=== PATIENT | male | born 1960 | race Hispanic/Latino ===

== ENCOUNTER 2016-10-23 21:27 | Inpatient (IN) | payer MEDICAID ==
--- NOTE | 2016-10-24 02:50 | Emergency Department Report ---
ED Extremity Problem HPI - General Chief complaint: Extremity Problem,Nontraumatic Stated complaint: LEFT LEG PAIN Time Seen by Provider: 10/24/16 02:46 Source: patient Mode of arrival: Wheelchair Limitations: No Limitations - History of Present Illness Initial comments: 55-year-old male past medical history brain surgery, osteomyelitis, alcoholism, cirrhosis presents with complaint of acute on chronic left lower extremity pain. Patient states that he once at [place] emergency room where he was diagnosed with acute osteomyelitis. States that he had infected hardware removed from his ankle in June 2016. states that he is experiencing pain in left lower extremity. States that he was supposed to be admitted to [facility] for IV antibiotics and left AGAINST MEDICAL ADVICE. This was within the last week. Patient awake alert and oriented 3 complaining of chills. MD Complaint: extremity pain, extremity swelling Onset/Timin -: week(s) Location: left, lower extremity History of Same: Yes -: Yes arthralgia, Yes fever Radiation: distal Severity scale (0 -10): 7 Quality: aching Improves with: nothing Worsens with: nothing - Related Data Allergies Allergy/AdvReac Type Severity Reaction Status Date / Time No Known Allergies Allergy Verified 10/23/16 21:52 ED Review of Systems ROS: Stated complaint: LEFT LEG PAIN Other details as noted in HPI Constitutional: denies: chills, fever Eyes: denies: eye pain, eye discharge, vision change ENT: denies: ear pain, throat pain Respiratory: denies: cough, shortness of breath, wheezing Cardiovascular: denies: chest pain, palpitations Endocrine: no symptoms reported Gastrointestinal: denies: abdominal pain, nausea, diarrhea Genitourinary: denies: urgency, dysuria Musculoskeletal: as per HPI. denies: back pain, joint swelling, arthralgia Skin: denies: rash, lesions Neurological: denies: headache, weakness, paresthesias Psychiatric: denies: anxiety, depression Hematological/Lymphatic: denies: easy bleeding, easy bruising ED Past Medical Hx - Past Medical History Previous Medical History?: Yes Additional medical history: CRONIC BACK AND LEG PAIN - Surgical History Past Surgical History?: Yes Additional Surgical History: LEFT LEG - Social History Smoking Status: Former Smoker Substance Use Type: Alcohol ED Physical Exam - General Limitations: No Limitations General appearance: alert, in no apparent distress - Head Head exam: Present: atraumatic, other (chronic scarring on scalp secondary to brain surgery) - Eye Eye exam: Present: normal appearance, PERRL, EOMI - ENT ENT exam: Present: mucous membranes moist - Neck Neck exam: Present: normal inspection - Respiratory Respiratory exam: Present: normal lung sounds bilaterally. Absent: respiratory distress - Cardiovascular Cardiovascular Exam: Present: regular rate, normal rhythm. Absent: systolic murmur, diastolic murmur, rubs, gallop - GI/Abdominal GI/Abdominal exam: Present: soft, normal bowel sounds - Rectal Rectal exam: Present: deferred - Extremities Exam Extremities exam: Present: normal inspection - Expanded Lower Extremity Exam Left Upper Leg exam: Present: normal inspection, full ROM Knee exam: Present: normal inspection, full ROM Ankle exam: Present: tenderness, deformity (visible healing chronic wound left distal lateral ankle) Foot/Toe exam: Present: normal inspection, full ROM Neuro vascular tendon exam: Present: no vascular compromise (distal dorsalis pedis and posterior tibial pulses intact) Gait: Positive: antalgic 1 - Healing chronic wound here no visible drainage no visible cellulitis no palpable fluctuance - Back Exam Back exam: Present: normal inspection - Neurological Exam Neurological exam: Present: alert, oriented X3, CN II-XII intact, abnormal gait (antalgic gait) - Psychiatric Psychiatric exam: Present: anxious - Skin Skin exam: Present: warm, dry, intact, normal color. Absent: rash ED Course Vital Signs 10/23/16 10/24/16 21:53 01:30 Temperature 98.2 F 97.8 F Pulse Rate 102 H 83 Respiratory 18 18 Rate Blood Pressure 160/93 Blood Pressure 170/85 [Left] O2 Sat by Pulse 95 98 Oximetry ED Medical Decision Making - Lab Data Result diagrams: 10/24/16 03:00 10/24/16 03:15 - Medical Decision Making A/P: Concern for acute osteomyelitis and left leg abscesses, possible elevated creatinine from baseline, possible GETACHEW 1-I discussed case with Dr. Zaragoza 2-x-ray shows bony deformities consistent with osteomyelitis. Will treat empirically with IV vancomycin and Zosyn, blood cultures sent. IV fluid resuscitation 3-medical records requested from [facility] 4-case discussed with hospitalist Dr. campoverde for admission 5- distal pulses and extremity intact distal sensation intact on clinical exam Critical care attestation.: If time is entered above; I have spent that time in minutes in the direct care of this critically ill patient, excluding procedure time. ED Disposition Clinical Impression: Osteomyelitis of ankle Qualifiers: Osteomyelitis type: other chronic Laterality: left Qualified Code(s): M86.672 - Other chronic osteomyelitis, left ankle and foot Disposition: OP ADMIT IP TO THIS HOSP Is pt being admited?: Yes Does the pt Need Aspirin: No Condition: Stable Referrals: PRIMARY CARE, [Primary Care Provider] - 3-5 Days
[2016-10-24] MEDS ORDERED: MORPHINE IV ONE (03:30)
[2016-10-24] MEDS ORDERED: NACL 0.9% 1000 ML 1,000 ML IV ONE (03:30)
[2016-10-24] MEDS ORDERED: ZOSYN/NS 4.5GM/100ML 4.5 GM/100 ML VIAL IV ONE ×2 (03:31→08:37)
[2016-10-24 03:41] LABS: Basophils % (Auto) 0.4 % (0.0-1.8); Eosinophils % (Auto) 3.3 % (0.0-4.3); Hemoglobin 12.8 gm/dl (11.8-15.2); Mean Corpuscular HGB Conc 34 % (32-34); Mean Corpuscular Hemoglobin 31 pg (28-32); Mean Corpuscular Volume 91 fl (84-94); Platelet Count 103 K/mm3 (140-440); Red Blood Count 4.16 M/mm3 (3.65-5.03); White Blood Count 4.7 K/mm3 (4.5-11.0)
[2016-10-24] MEDS ORDERED: ZOFRAN IV ONE (03:47)
[2016-10-24 03:51] LABS: Albumin/Globulin Ratio 0.9 %; Bilirubin,Direct 0.3 mg/dL (0-0.2); Bilirubin,Indirect 0.6 mg/dL; Bilirubin,Total 0.9 mg/dL (0.1-1.2); Total Protein 6.5 g/dL (6.3-8.2)
--- NOTE | 2016-10-24 03:56 | XRay Report ---
FINAL REPORT EXAM: XR ANKLE 3+V LT HISTORY: pain LLE, hx of ORIF COMPARISON: None available. FINDINGS: Three views of left ankle obtained. 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 Fracture line appears well corticated. No definite acute fracture in this region. Moderate narrowing of the tibiotalar joint space with hypertrophic spurring. There is bony irregularity along the articular surface and lateral aspect of the distal tibia and osteopenia along the superior margin the talus in that region. Findings are concerning for posttraumatic osteolysis. Septic arthritis cannot be excluded. Prominent soft tissue swelling. Prominent plantar calcaneal spur. IMPRESSION: Bony irregularity lucency along the lateral margin of the distal tibia and talus. This could reflect osteomyelitis from prior trauma. Septic arthritis cavus similar appearance. Prominent soft tissue swelling. 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 Prominent plantar calcaneal spur.
[2016-10-24] MEDS ORDERED: VANCOMYCIN PHARMACY TO DOSE IV SCH ×2 (04:00→09:00)
[2016-10-24 04:08] LABS: BUN/Creatinine Ratio 7.64; Calcium 9.1 mg/dL (8.4-10.2); Chloride 102.7 mmol/L (98-107); Potassium 4.7 mmol/L (3.6-5.0)
[2016-10-24 04:12] LABS: Erythrocyte Sedimentation Rate 16 mm/Hr (0-20)
[2016-10-24] MEDS ORDERED: VANCOMYCIN 1,500 MG in NACL 0.9% 500 ML 500 ML IV ONE (04:15)
[2016-10-24 04:21] LABS: C-Reactive Protein 0.8 mg/dL (0.00-1.30)
[2016-10-24 05:38] LABS: Urine Drugs of Abuse Note Disclamer
[2016-10-24 05:44] LABS: Bilirubin,Urine NEG (Negative); Blood,Urine NEG (Negative); Ketones,Urine NEG (Negative); Leukocyte Esterase,Urine NEG (Negative); Mucus,Urine FEW /HPF; Nitrite,Urine NEG (Negative); Protein,Urine <15 mg/dL mg/dL (Negative); Urobilinogen,Urine < 2.0 mg/dL (<2.0)
--- NOTE | 2016-10-24 08:33 | Admit Criteria Form ---
Admission Criteria Documentation: OSTEOMYELITIS Clinical Indications for Admission to Inpatient Care (Place 'X' for any and all applicable criteria) Admission is indicated by 1 or more of the following (1)(2)(3)(4)(5)(6): [ ] I. Significant systemic illness indicated by 2 or more of the following: [ ]a) Core (eg rectal) temperature greater or equal [id number](37.8C) in an adult [ ]b) Oral temperature[A] greater than or equal to 99.3 degrees F ( 37.4 degrees C) in an adult [ ]c) Heart rate greater than 90 beats per minute [ ]d) Respiratory rate greater than 20 breaths per minute or PaCO2 less than 32 mm Hg (4.3 kPa) [ ]e) White blood cell count > 12,000/mm3 (12 x109/L) or < 4000/mm3 ( 4 x109/L) or > 10% band cells [ ] II. Hemodynamic instability [X] III. Severe pain requiring acute inpatient management [ ] IV. Bacteremia [ ] V. Altered Mental status that is severe or persistent [ ] . Limb-threatening infection [ ] VII. Suspected necrotizing soft tissue infection (e.g., gas in tissue) [ ] VIII.Surgical intervention required (e.g., bone or soft tissue debridement, removal of foreign body, or revascularization procedure) not performable in outpatient or emergency department level of care(7) [] IX. Appropriate monitoring and therapy (IV antibiotics) cannot be immediately arranged for home or outpatient setting [ ] X. Failure of outpatient treatment [ ] XI. High-risk comorbid condition present including 1 or more of the following: [ ]a) Poorly controlled diabetes (e.g., HbA1c greater than 10% (0.1)) [ ]b) Vascular insufficiency to affected area [ ]c) Cirrhosis [ ]d) Neutropenia [ ]e) Asplenia [ ]f) Immunosuppression (e.g., chronic systemic corticosteroid use) [ ]g) Symptomatic heart failure [ ] XII. Joint involvement (e.g., septic arthritis) suspected [ ] XIII.Vertebral osteomyelitis [ ] XIV. Skull-base osteomyelitis (e.g.,"malignant external otitis")[A](8)(9)(10 ) Extended stay beyond goal length of stay may be needed for(1)(3)(4)(5)(24)(25): [ ]a) Inadequate clinical response to antibiotics (e.g., continued fever, hypotension) [ ]b) Bacteremia [ ]c) Surgical intervention needed (e.g., beyond superficial debridement)(26) [ ]d) Vertebral osteomyelitis with spinal cord compression, abscess formation, or mechanical instability [ ]e) Antibiotic-resistant organism identified (e.g., methicillin-resistant Staphylococcal aureus) [ ]f) Severe concomitant cellulitis [ ]g) Acute metabolic disorder [ ]h) Unstable comorbidities (e.g., heart failure, renal insufficiency, immunosuppressed state)(28) [ ]i) Clinically significant malnutrition [ ]j) Acute renal failure The original [facility] [employer] content created by [facility] has been revised. The portions of the content which have been revised are identified through the use of italic text or in bold, and [facility] has neither reviewed nor approved the modified material. All other unmodified content is copyright [facility] [facility].Edition 2016. Admission Criteria Met: Yes
[2016-10-24] MEDS ORDERED: ZOFRAN IM PRN (08:41)
--- NOTE | 2016-10-24 08:41 | History and Physical Report ---
<LUCIANO MADISON - Last Filed: 10/24/16 20:08> History of Present Illness Date of admission: 10/24/16 04:25 Medications and Allergies Allergies Allergy/AdvReac Type Severity Reaction Status Date / Time No Known Allergies Allergy Verified 10/23/16 21:52 Home Medications Medication Instructions Recorded Confirmed Last Taken Type Levothyroxine [Synthroid] 88 mcg PO DAILY #30 tablet 07/17/16 10/24/16 Unknown Rx Multivitamin Tab [Multiple Vitamin 1 each PO DAILY #30 tablet 07/17/16 10/24/16 Unknown Rx TAB (Theragran)] Omeprazole 20 mg PO QDAY #30 07/17/16 10/24/16 Unknown Rx Rifaximin [Xifaxan] 550 mg PO BID #60 tablet 07/17/16 10/24/16 Unknown Rx Spironolactone 50 mg PO QDAY #30 07/17/16 10/24/16 Unknown Rx Lactulose 15 - 30 ml PO TID PRN 30 Days 08/04/16 10/24/16 Unknown Rx Thiamine [Vitamin B-1] 100 mg PO QDAY #30 tablet 08/04/16 10/24/16 Unknown Rx chlordiazePOXIDE [Librium] 10 mg PO DAILY #5 capsule 08/04/16 10/24/16 Unknown Rx oxyCODONE [Roxicodone TAB] 5 mg PO Q6HR #10 tablet 08/04/16 10/24/16 Unknown Rx Levothyroxine [Synthroid] 88 mcg PO DAILY@0600 #30 tablet 08/09/16 10/24/16 Unknown Rx Multivitamin Tab [Multiple Vitamin 1 each PO QDAY #30 tablet 08/09/16 10/24/16 Unknown Rx TAB (Theragran)] Pantoprazole [Protonix TAB] 40 mg PO BID #30 tablet 08/09/16 10/24/16 Unknown Rx Rifaximin [Xifaxan] 550 mg PO BID #30 tablet 08/09/16 10/24/16 Unknown Rx Spironolactone [Aldactone] 50 mg PO QDAY #30 tablet 08/09/16 10/24/16 Unknown Rx chlordiazePOXIDE [Librium] 10 mg PO DAILY #10 capsule 08/09/16 10/24/16 Unknown Rx traMADol [Ultram] 50 mg PO Q6HR PRN #20 tablet 08/09/16 10/24/16 Unknown Rx Citalopram Hydrobromide 20 mg PO DAILY MDD 20 mg 10/24/16 10/24/16 10/23/16 History [Citalopram HBr] 20 mg Lactulose [Lactulose] 15 ml PO BID MDD 15 ml 10/24/16 10/24/16 10/22/16 History 15 ml Levothyroxine [Synthroid] 88 mcg PO QAM 10/24/16 10/24/16 10/24/16 History 88 mcg Multivitamin Tab [Multiple Vitamin 1 tab PO DAILY MDD 1 tablet 10/24/1610/23/16 History TAB (Theragran)] 1 tab Oxycodone HCl/Acetaminophen 1 tab PO Q6H PRN MDD 1 tab 10/24/16 10/24/16 History [Percocet 10/325 mg] 1 tab Quetiapine Fumarate [SEROquel XR] 25 mg PO HS MDD 25 mg 10/24/16 10/24/16 History 25 mg Rifaximin [Xifaxan] 550 mg PO BID 10/24/16 10/24/16 10/17/16 History 550 mg Spironolactone [Aldactone] 50 mg PO QDAY MDD 50 mg 10/24/16 10/24/16 10/23/16 History 50 mg Sulfamethoxazole/Trimethoprim 1 each PO BID 10/24/16 10/24/16 10/23/16 History [Bactrim DS TAB] 1 tab Active Meds: Active Medications Citalopram Hydrobromide (Celexa) 20 mg PO DAILY [facility] Last Admin: 10/24/16 09:47 Dose: 20 mg Enoxaparin Sodium (Lovenox) 40 mg SUB-Q QDAY@2200 [facility] Vancomycin HCl 1,250 mg/ (Sodium Chloride) 275 mls @ 166.667 mls/hr IV Q24H [facility] Sodium Chloride (Nacl 0.9% 1000 Ml) 1,000 mls @ 75 mls/hr IV DIRECT [facility] Last Admin: 10/24/16 12:40 Dose: 75 mls/hr Piperacillin Sod/Tazobactam Sod (Zosyn/Ns 4.5gm/100ml) 4.5 gm in 100 mls @ 200 mls/hr IV Q8HR [facility] PRN Reason: Protocol Lactulose (Cephulac) 20 gm PO BID [facility] Levothyroxine Sodium (Synthroid) 88 mcg PO QAM [facility] Last Admin: 10/24/16 09:47 Dose: 88 mcg Morphine Sulfate (Morphine) 2 mg IV Q4H PRN PRN Reason: Pain, Moderate (4-6) Last Admin: 10/24/16 18:17 Dose: 2 mg Multivitamins (Theragran Tab) 1 each PO DAILY [facility] Last Admin: 10/24/16 09:47 Dose: 1 each Ondansetron HCl (Zofran) 4 mg IM Q4H PRN PRN Reason: Nausea And Vomiting Last Admin: 10/24/16 17:00 Dose: 4 mg Pantoprazole Sodium (Protonix) 40 mg PO BID [facility] Quetiapine Fumarate (Seroquel) 25 mg PO QHS [facility] Rifaximin (Xifaxan) 550 mg PO BID [facility] Last Admin: 10/24/16 09:47 Dose: 550 mg Spironolactone (Aldactone) 50 mg PO QDAY [facility] Last Admin: 10/24/16 09:48 Dose: 50 mg Thiamine HCl (Vitamin B-1) 100 mg PO QDAY [facility] Tramadol HCl (Ultram) 50 mg PO Q6HR PRN PRN Reason: Pain Vancomycin HCl (Vancomycin Pharmacy To Dose) 1 each IV PKCONSULT [facility] PRN Reason: Protocol Exam - Constitutional Vitals: Temp Pulse Resp BP Pulse Ox 97.9 F 73 18 127/70 98 10/24/16 16:00 10/24/16 16:00 10/24/16 16:00 10/24/16 16:00 10/24/16 16:00 Results - Labs CBC & Chem 7: 10/24/16 03:00 10/24/16 03:15 Labs: Laboratory Last Values WBC 4.7 K/mm3 (4.5-11.0) 10/24/16 03:00 RBC 4.16 M/mm3 (3.65-5.03) 10/24/16 03:00 Hgb 12.8 gm/dl (11.8-15.2) 10/24/16 03:00 Hct 38.0 % (35.5-45.6) 10/24/16 03:00 MCV 91 fl (84-94) 10/24/16 03:00 MCH 31 pg (28-32) 10/24/16 03:00 MCHC 34 % (32-34) 10/24/16 03:00 RDW 17.0 % (13.2-15.2) H 10/24/16 03:00 Plt Count 103 K/mm3 (140-440) L 10/24/16 03:00 Lymph % (Auto) 28.7 % (13.4-35.0) 10/24/16 03:00 [place] % (Auto) 12.8 % (0.0-7.3) H 10/24/16 03:00 Eos % (Auto) 3.3 % (0.0-4.3) 10/24/16 03:00 Baso % (Auto) 0.4 % (0.0-1.8) 10/24/16 03:00 Lymph # 1.4 K/mm3 (1.2-5.4) 10/24/16 03:00 [place] # 0.6 K/mm3 (0.0-0.8) 10/24/16 03:00 Eos # 0.2 K/mm3 (0.0-0.4) 10/24/16 03:00 Baso # 0.0 K/mm3 (0.0-0.1) 10/24/16 03:00 Seg Neutrophils % 54.8 % (40.0-70.0) 10/24/16 03:00 Seg Neutrophils # 2.6 K/mm3 (1.8-7.7) 10/24/16 03:00 ESR 16 mm/Hr (0-20) 10/24/16 03:00 VBG pH 7.345 (7.320-7.420) 10/24/16 03:00 Sodium 136 mmol/L (137-145) L 10/24/16 03:15 Potassium 4.7 mmol/L (3.6-5.0) 10/24/16 03:15 Chloride 102.7 mmol/L (98-107) 10/24/16 03:15 Carbon Dioxide 16 mmol/L (22-30) L 10/24/16 03:15 Anion Gap 22 mmol/L 10/24/16 03:15 BUN 13 mg/dL (9-20) 10/24/16 03:15 Creatinine 1.7 mg/dL (0.8-1.5) H 10/24/16 03:15 Estimated GFR 42 ml/min 10/24/16 03:15 BUN/Creatinine Ratio 7.64 % 10/24/16 03:15 Glucose 74 mg/dL (75-100) L 10/24/16 03:15 Lactic Acid 1.90 mmol/L (0.7-2.0) 10/24/16 03:15 Calcium 9.1 mg/dL (8.4-10.2) 10/24/16 03:15 Total Bilirubin 0.90 mg/dL (0.1-1.2) 10/24/16 03:15 Direct Bilirubin 0.3 mg/dL (0-0.2) H 10/24/16 03:15 Indirect Bilirubin 0.6 mg/dL 10/24/16 03:15 AST 39 units/L (5-40) 10/24/16 03:15 ALT 13 units/L (7-56) 10/24/16 03:15 Alkaline Phosphatase 82 units/L (35-129) 10/24/16 03:15 Total Creatine Kinase 239 units/L (55-170) H 10/24/16 03:15 C-Reactive Protein 0.80 mg/dL (0.00-1.30) 10/24/16 03:15 Total Protein 6.5 g/dL (6.3-8.2) 10/24/16 03:15 Albumin 3.0 g/dL (3.9-5) L 10/24/16 03:15 Albumin/Globulin Ratio 0.9 % 10/24/16 03:15 Urine Color Yellow (Yellow) 10/24/16 Unknown Urine Turbidity Clear (Clear) 10/24/16 Unknown Urine pH 5.0 (5.0-7.0) 10/24/16 Unknown Ur Specific [place] 1.016 (1.003-1.030) 10/24/16 Unknown Urine Protein <15 mg/dl mg/dL (Negative) 10/24/16 Unknown Urine Glucose (UA) Neg mg/dL (Negative) 10/24/16 Unknown Urine Ketones Neg mg/dL (Negative) 10/24/16 Unknown Urine Blood Neg (Negative) 10/24/16 Unknown Urine Nitrite Neg (Negative) 10/24/16 Unknown Urine Bilirubin Neg (Negative) 10/24/16 Unknown Urine Urobilinogen < 2.0 mg/dL (<2.0) 10/24/16 Unknown Ur Leukocyte Esterase Neg (Negative) 10/24/16 Unknown Urine WBC (Auto) 6.0 /HPF (0.0-6.0) 10/24/16 Unknown Urine RBC (Auto) 4.0 /HPF (0.0-6.0) 10/24/16 Unknown U Epithel Cells (Auto) 1.0 /HPF (0-13.0) 10/24/16 Unknown Hyaline Casts 1 /LPF 10/24/16 Unknown Urine Mucus Few /HPF 10/24/16 Unknown Urine Opiates Screen Presumptive negative 10/24/16 Unknown Urine Methadone Screen Presumptive negative 10/24/16 Unknown Ur Barbiturates Screen Presumptive negative 10/24/16 Unknown Ur Phencyclidine Scrn Presumptive negative 10/24/16 Unknown Ur Amphetamines Screen Presumptive positive 10/24/16 Unknown U Benzodiazepines Scrn Presumptive negative 10/24/16 Unknown Urine Cocaine Screen Presumptive positive 10/24/16 Unknown U Marijuana (THC) Screen Presumptive negative 10/24/16 Unknown Drugs of Abuse Note Disclamer 10/24/16 Unknown Assessment and Plan Assessment and plan: I saw and evaluated the patient. I agree with the findings and the plan of care as documented in the Nurse Practitioner's~note, with the following corrections and additions. Patient seen and evaluated, medical records reviewed, formulated the treatment plan along with the nurse practitioner Consulted orthopedic surgeon We'll also consult infectious diseases Agree with the above documentation and treatment plan <JADEN VORA - Last Filed: 10/25/16 13:39> History of Present Illness Date of examination: 10/24/16 Date of admission: 10/24/16 04:25 Chief complaint: Left leg pain and swelling History of present illness: Patient is a 55-year-old male past medical history of brain surgery, osteomyelitis, alcoholism, cirrhosis presents with complaint of acute on chronic left lower extremity pain and extremity swelling.The pain began Friday around 4:00 am while the patient was at home. The pain was described as aching and had a gradual onset. The patient had difficulty of sleeping Friday because of the pain. The pain continued to gradually increase in severity to an 9/10 today. The pain was exacerbated with walking or standing and was not significantly relieved with Percocet that the patient had by prescription. Patient states that he once at [place] emergency room where he was diagnosed with acute osteomyelitis. Also States that he had infected hardware removed from his ankle in June 2016. Past History Past Medical History: hepatitis (C), hypothyroidism Past Surgical History: Other (Brain ) Social history: lives with family, smoking, alcohol abuse, other Family history: CAD Medications and Allergies Active Meds: Active Medications Vancomycin HCl 1,250 mg/ (Sodium Chloride) 275 mls @ 166.667 mls/hr IV Q24H [facility] Piperacillin Sod/Tazobactam Sod (Zosyn/Ns 4.5gm/100ml) 4.5 gm in 100 mls @ 200 mls/hr IV Q6HR ONE Stop: 10/24/16 09:06 Morphine Sulfate (Morphine) 2 mg IV Q4H PRN PRN Reason: Pain, Moderate (4-6) Vancomycin HCl (Vancomycin Pharmacy To Dose) 1 each IV PKCONSULT [facility] PRN Reason: Protocol Vancomycin HCl (Vancomycin Pharmacy To Dose) 1 each IV PKCONSULT [facility] PRN Reason: Protocol Review of Systems Constitutional: chills, no weight loss, no weight gain, no sweats, no night sweats Ears, nose, mouth and throat: no ear pain, no ear discharge, no tinnitis, no decreased hearing, no nose pain Cardiovascular: no chest pain, no orthopnea, no palpitations Respiratory: no cough, no cough with sputum, no excessive sputum, no hemoptysis , no shortness of breath Gastrointestinal: no nausea, no vomiting, no diarrhea, no constipation, no change in bowel habits, no hematemesis Genitourinary Male: no hematuria, no flank pain, no discharge, no urinary frequency, no urinary hesitancy Rectal: no incontinence, no bleeding Musculoskeletal: other (Left leg), no neck pain, no shooting arm pain Integumentary: no rash, no pruritis, no redness, no sores, no wounds Neurological: no transient paralysis, no paralysis, no weakness, no parathesias Psychiatric: no anxiety, no memory loss, no change in sleep habits, no sleep disturbances, no insomnia, no hypersomnia Endocrine: no cold intolerance, no heat intolerance, no polyphagia, no excessive thirst, no polydipsia Hematologic/Lymphatic: no easy bruising, no easy bleeding Allergic/Immunologic: no urticaria, no allergic rhinitis Exam - Constitutional Vitals: Temp Pulse Resp BP Pulse Ox 98.3 F 86 18 161/78 98 10/24/16 05:12 10/24/16 05:12 10/24/16 05:12 10/24/16 05:12 10/24/16 05:12 General appearance: Present: mild distress - EENT Eyes: Present: PERRL ENT: hearing intact - Neck Neck: Present: supple - Respiratory Respiratory effort: normal Respiratory: bilateral: CTA - Cardiovascular Heart rate: 78 Rhythm: regular Heart Sounds: Present: S1 & S2 - Extremities Extremities: no ischemia Extremity abnormal: other (left ankle wound ) Peripheral Pulses: within normal limits - Abdominal General gastrointestinal: Present: soft, non-tender Male genitourinary: Present: deferred - Rectal Rectal Exam: deferred - Integumentary Integumentary: Present: clear, warm, dry - Musculoskeletal Musculoskeletal: strength equal bilaterally, other (left leg wound) - Psychiatric Psychiatric: appropriate mood/affect - Neurologic Neurologic: CNII-XII intact - Allied Health Allied health notes reviewed: nursing Results - Labs CBC & Chem 7: 10/25/16 06:01 10/25/16 06:01 Labs: Laboratory Last Values WBC 4.7 K/mm3 (4.5-11.0) 10/24/16 03:00 RBC 4.16 M/mm3 (3.65-5.03) 10/24/16 03:00 Hgb 12.8 gm/dl (11.8-15.2) 10/24/16 03:00 Hct 38.0 % (35.5-45.6) 10/24/16 03:00 MCV 91 fl (84-94) 10/24/16 03:00 MCH 31 pg (28-32) 10/24/16 03:00 MCHC 34 % (32-34) 10/24/16 03:00 RDW 17.0 % (13.2-15.2) H 10/24/16 03:00 Plt Count 103 K/mm3 (140-440) L 10/24/16 03:00 Lymph % (Auto) 28.7 % (13.4-35.0) 10/24/16 03:00 [place] % (Auto) 12.8 % (0.0-7.3) H 10/24/16 03:00 Eos % (Auto) 3.3 % (0.0-4.3) 10/24/16 03:00 Baso % (Auto) 0.4 % (0.0-1.8) 10/24/16 03:00 Lymph # 1.4 K/mm3 (1.2-5.4) 10/24/16 03:00 [place] # 0.6 K/mm3 (0.0-0.8) 10/24/16 03:00 Eos # 0.2 K/mm3 (0.0-0.4) 10/24/16 03:00 Baso # 0.0 K/mm3 (0.0-0.1) 10/24/16 03:00 Seg Neutrophils % 54.8 % (40.0-70.0) 10/24/16 03:00 Seg Neutrophils # 2.6 K/mm3 (1.8-7.7) 10/24/16 03:00 ESR 16 mm/Hr (0-20) 10/24/16 03:00 VBG pH 7.345 (7.320-7.420) 10/24/16 03:00 Sodium 136 mmol/L (137-145) L 10/24/16 03:15 Potassium 4.7 mmol/L (3.6-5.0) 10/24/16 03:15 Chloride 102.7 mmol/L (98-107) 10/24/16 03:15 Carbon Dioxide 16 mmol/L (22-30) L 10/24/16 03:15 Anion Gap 22 mmol/L 10/24/16 03:15 BUN 13 mg/dL (9-20) 10/24/16 03:15 Creatinine 1.7 mg/dL (0.8-1.5) H 10/24/16 03:15 Estimated GFR 42 ml/min 10/24/16 03:15 BUN/Creatinine Ratio 7.64 % 10/24/16 03:15 Glucose 74 mg/dL (75-100) L 10/24/16 03:15 Lactic Acid 1.90 mmol/L (0.7-2.0) 10/24/16 03:15 Calcium 9.1 mg/dL (8.4-10.2) 10/24/16 03:15 Total Bilirubin 0.90 mg/dL (0.1-1.2) 10/24/16 03:15 Direct Bilirubin 0.3 mg/dL (0-0.2) H 10/24/16 03:15 Indirect Bilirubin 0.6 mg/dL 10/24/16 03:15 AST 39 units/L (5-40) 10/24/16 03:15 ALT 13 units/L (7-56) 10/24/16 03:15 Alkaline Phosphatase 82 units/L (35-129) 10/24/16 03:15 Total Creatine Kinase 239 units/L (55-170) H 10/24/16 03:15 C-Reactive Protein 0.80 mg/dL (0.00-1.30) 10/24/16 03:15 Total Protein 6.5 g/dL (6.3-8.2) 10/24/16 03:15 Albumin 3.0 g/dL (3.9-5) L 10/24/16 03:15 Albumin/Globulin Ratio 0.9 % 10/24/16 03:15 Urine Color Yellow (Yellow) 10/24/16 Unknown Urine Turbidity Clear (Clear) 10/24/16 Unknown Urine pH 5.0 (5.0-7.0) 10/24/16 Unknown Ur Specific [place] 1.016 (1.003-1.030) 10/24/16 Unknown Urine Protein <15 mg/dl mg/dL (Negative) 10/24/16 Unknown Urine Glucose (UA) Neg mg/dL (Negative) 10/24/16 Unknown Urine Ketones Neg mg/dL (Negative) 10/24/16 Unknown Urine Blood Neg (Negative) 10/24/16 Unknown Urine Nitrite Neg (Negative) 10/24/16 Unknown Urine Bilirubin Neg (Negative) 10/24/16 Unknown Urine Urobilinogen < 2.0 mg/dL (<2.0) 10/24/16 Unknown Ur Leukocyte Esterase Neg (Negative) 10/24/16 Unknown Urine WBC (Auto) 6.0 /HPF (0.0-6.0) 10/24/16 Unknown Urine RBC (Auto) 4.0 /HPF (0.0-6.0) 10/24/16 Unknown U Epithel Cells (Auto) 1.0 /HPF (0-13.0) 10/24/16 Unknown Hyaline Casts 1 /LPF 10/24/16 Unknown Urine Mucus Few /HPF 10/24/16 Unknown Urine Opiates Screen Presumptive negative 10/24/16 Unknown Urine Methadone Screen Presumptive negative 10/24/16 Unknown Ur Barbiturates Screen Presumptive negative 10/24/16 Unknown Ur Phencyclidine Scrn Presumptive negative 10/24/16 Unknown Ur Amphetamines Screen Presumptive positive 10/24/16 Unknown U Benzodiazepines Scrn Presumptive negative 10/24/16 Unknown Urine Cocaine Screen Presumptive positive 10/24/16 Unknown U Marijuana (THC) Screen Presumptive negative 10/24/16 Unknown Drugs of Abuse Note Disclamer 10/24/16 Unknown Assessment and Plan Assessment and plan: Osteomyelitis Xray of the left ankle shows acute Osteomyelitis Wound and blood cultured collected prior to antibiotic Started on empiric treatment antibiotic vancomycin and Zosyn Wound care consulted Orthopedic Dr. Bain consulted Pain controlled with morphine Acute Kidney Injury/vasomotor nephropathy Most likely from dehydration IV fluid hydration if renal function did not improve with fluid we will consider nephrology Repeat BMP in the AM Hx of Hepatitis C/cirrhosis Resume lactulose Hypothyroidism Continue on Synthroid Cocaine abuse Cocaine abuse cessation counseling done patient is strongly advised to quit using cocaine DVT prophylaxis Lovenox Advance Directives: Yes VTE prophylaxis?: Chemical Contraindication Mechanical VTE Prophylaxis: Treatment Not Indicated Plan of care discussed with patient/family: Yes
[2016-10-24] MEDS: MORPHINE IV PRN ×4 (09:44→22:09)
[2016-10-24] MEDS: SYNTHROID PO SCH (09:47)
[2016-10-24] MEDS: XIFAXAN PO SCH ×2 (09:47→21:52)
[2016-10-24] MEDS: celeXA PO SCH (09:47)
[2016-10-24] MEDS: THERAGRAN Tab PO SCH (09:47)
[2016-10-24] MEDS: ALDACTONE PO SCH (09:48)
[2016-10-24] MEDS ORDERED: CEPHULAC PR SCH (10:00)
[2016-10-24] MEDS: NACL 0.9% 1000 ML 1,000 ML IV SCH (12:40)
--- NOTE | 2016-10-24 14:09 | Consultation ---
History of Present Illness - [facility] Consult date: 10/24/16 Consult reason: joint pain History of present illness: 55-year-old male past medical history brain surgery, osteomyelitis, alcoholism, cirrhosis presents with complaint of acute on chronic left lower extremity pain. Patient states that he once at [place] emergency room where he was diagnosed with acute osteomyelitis. States that he had infected hardware removed from his ankle in June 2016. states that he is experiencing pain in left lower extremity. States that he was supposed to be admitted to [facility] for IV antibiotics and left AGAINST MEDICAL ADVICE. Past History Past Medical History: hepatitis (C), hypothyroidism Past Surgical History: Other (Brain ) Social history: lives with family, smoking, alcohol abuse, other Family history: CAD Medications and Allergies Allergies Allergy/AdvReac Type Severity Reaction Status Date / Time No Known Allergies Allergy Verified 10/23/16 21:52 Home Medications Medication Instructions Recorded Confirmed Last Taken Type Citalopram Hydrobromide 20 mg PO DAILY MDD 20 mg 10/24/16 10/24/16 10/23/16 History [Citalopram HBr] 20 mg Lactulose [Lactulose] 15 ml PO BID MDD 15 ml 10/24/16 10/24/16 10/22/16 History 15 ml Levothyroxine [Synthroid] 88 mcg PO QAM 10/24/16 10/24/16 10/24/16 History 88 mcg Multivitamin Tab [Multiple Vitamin 1 tab PO DAILY MDD 1 tablet 10/24/1610/23/16 History TAB (Theragran)] 1 tab Oxycodone HCl/Acetaminophen 1 tab PO Q6H PRN MDD 1 tab 10/24/16 10/24/16 History [Percocet 10/325 mg] 1 tab Quetiapine Fumarate [SEROquel XR] 25 mg PO HS MDD 25 mg 10/24/16 10/24/16 History 25 mg Rifaximin [Xifaxan] 550 mg PO BID 10/24/16 10/24/16 10/17/16 History 550 mg Spironolactone [Aldactone] 50 mg PO QDAY MDD 50 mg 10/24/16 10/24/16 10/23/16 History 50 mg Sulfamethoxazole/Trimethoprim 1 each PO BID 10/24/16 10/24/16 10/23/16 History [Bactrim DS TAB] 1 tab Active Meds: Active Medications Citalopram Hydrobromide (Celexa) 20 mg PO DAILY [facility] Last Admin: 10/24/16 09:47 Dose: 20 mg Enoxaparin Sodium (Lovenox) 40 mg SUB-Q QDAY@2200 [facility] Vancomycin HCl 1,250 mg/ (Sodium Chloride) 275 mls @ 166.667 mls/hr IV Q24H [facility] Sodium Chloride (Nacl 0.9% 1000 Ml) 1,000 mls @ 75 mls/hr IV DIRECT [facility] Last Admin: 10/24/16 12:40 Dose: 75 mls/hr Lactulose (Cephulac) 20 gm PO BID [facility] Levothyroxine Sodium (Synthroid) 88 mcg PO QAM [facility] Last Admin: 10/24/16 09:47 Dose: 88 mcg Miscellaneous Medication (Quetiapine Fumarate [Seroquel Xr]) 25 mg PO HS [facility] Morphine Sulfate (Morphine) 2 mg IV Q4H PRN PRN Reason: Pain, Moderate (4-6) Last Admin: 10/24/16 13:59 Dose: 2 mg Multivitamins (Theragran Tab) 1 each PO DAILY [facility] Last Admin: 10/24/16 09:47 Dose: 1 each Ondansetron HCl (Zofran) 4 mg IM Q4H PRN PRN Reason: Nausea And Vomiting Rifaximin (Xifaxan) 550 mg PO BID [facility] Last Admin: 10/24/16 09:47 Dose: 550 mg Spironolactone (Aldactone) 50 mg PO QDAY [facility] Last Admin: 10/24/16 09:48 Dose: 50 mg Vancomycin HCl (Vancomycin Pharmacy To Dose) 1 each IV PKCONSULT [facility] PRN Reason: Protocol Physical Examination - Physical exam Narrative exam: Physical examination the left lower extremity here at the ankle is noted to have healed incision along the lateral border of the distal fibula there is no redness or erythema patient does have good active and passive range of motion at the ankle joint capillary refill brisk X-rays from the emergency room were reviewed by me and show chronic changes at the distal fibula evidence of previous surgery and hardware removal Assessment and Plan Assessment - postoperative infection with methicillin-resistant staph aureus Recommendations -discussed options with the patient that is possible surgical fusion versus ankle replacement, due to previous history of infection total ankle replacement is contraindicated therefore once the infection clears patient may be a candidate for ankle fusion
[2016-10-24] MEDS ORDERED: ULTRAM PO PRN (19:59)
[2016-10-24] MEDS: PROTONIX PO SCH (21:52)
[2016-10-24] MEDS: CEPHULAC PO SCH (21:52)
[2016-10-24] MEDS: ZOSYN/NS 4.5GM/100ML 4.5 GM/100 ML VIAL IV SCH (21:54)
[2016-10-24] MEDS: LOVENOX SUB-Q SCH (22:00)
[2016-10-24] MEDS ORDERED: QUETIAPINE FUMARATE 25 MG PO SCH (22:00)
[2016-10-25] MEDS: MORPHINE IV PRN ×4 (03:02→18:00)
[2016-10-25] MEDS: NACL 0.9% 1000 ML 1,000 ML IV SCH ×2 (03:03→19:00)
[2016-10-25] MEDS: VANCOMYCIN 1,250 MG in NACL 0.9% 250ML 250 ML IV SCH (04:40)
[2016-10-25] MEDS: ZOSYN/NS 4.5GM/100ML 4.5 GM/100 ML VIAL IV SCH ×3 (06:29→22:30)
[2016-10-25 06:44] LABS: Basophils % (Auto) 0.4 % (0.0-1.8); Eosinophils % (Auto) 6.3 % (0.0-4.3); Hematocrit 36.1 % (35.5-45.6); Hemoglobin 12.1 gm/dl (11.8-15.2); Mean Corpuscular HGB Conc 33 % (32-34); Mean Corpuscular Hemoglobin 31 pg (28-32); Mean Corpuscular Volume 91 fl (84-94); Red Blood Count 3.95 M/mm3 (3.65-5.03); Red Cell Distribution Width 17.4 % (13.2-15.2); White Blood Count 4.8 K/mm3 (4.5-11.0)
[2016-10-25 06:52] LABS: Alanine Aminotransferase 11 units/L (7-56); Albumin 2.8 g/dL (3.9-5); Albumin/Globulin Ratio 0.9 %; Alkaline Phosphatase 73 units/L (35-129); Anion Gap 17 mmol/L; Bilirubin,Direct 0.3 mg/dL (0-0.2); Bilirubin,Indirect 0.7 mg/dL; Blood Urea Nitrogen 9 mg/dL (9-20); Calcium 8.1 mg/dL (8.4-10.2); Carbon Dioxide 21 mmol/L (22-30); Chloride 106.6 mmol/L (98-107); Glucose 81 mg/dL (75-100); Potassium 4.3 mmol/L (3.6-5.0); Sodium 140 mmol/L (137-145); Total Protein 5.8 g/dL (6.3-8.2)
[2016-10-25 07:18] LABS: Platelet Count 98 K/mm3 (140-440)
--- NOTE | 2016-10-25 08:03 | Progress Note ---
Assessment and Plan Assessment and plan: Osteomyelitis Patient s/p hardware removal in 2017 Xray of the left ankle shows acute Osteomyelitis Blood cultured no growth to date. Continue on empiric treatment antibiotic vancomycin and Zosyn Wound care consulted Orthopedic Dr. Bain evaluated him and recommended surgical fusion versus ankle replacement once infection cleared up Infectious disease consulted Pain controlled with morphine Acute Kidney Injury/vasomotor nephropathy Resolved with IV fluid hydration, currently serum creatinine 1.2 Most likely from dehydration Hx of Hepatitis C/cirrhosis Resume lactulose Hypothyroidism Continue on Synthroid Cocaine abuse Cocaine abuse cessation counseling done patient is strongly advised to quit using cocaine DVT prophylaxis Lovenox History Interval history: Patient has uneventful overnight, he verbalized feeling better. Hospitalist Physical - Constitutional Vitals: Temp Pulse Resp BP Pulse Ox 98.4 F 68 18 132/80 97 10/25/16 00:00 10/25/16 00:00 10/25/16 00:00 10/25/16 00:00 10/25/16 00:00 General appearance: Present: mild distress - EENT Eyes: Present: PERRL ENT: hearing intact - Neck Neck: Present: supple - Respiratory Respiratory effort: normal - Cardiovascular Rhythm: regular Heart Sounds: Present: S1 & S2 - Extremities Extremities: no ischemia Extremity abnormal: other (left ankle wound ) - Abdominal General gastrointestinal: soft, non-tender - Integumentary Integumentary: Present: clear, warm, dry - Psychiatric Psychiatric: appropriate mood/affect - Neurologic Neurologic: CNII-XII intact - Allied Health Allied health notes reviewed: nursing Results - Labs CBC & Chem 7: 10/25/16 06:01 10/25/16 06:01 Labs: Laboratory Last Values WBC 4.8 K/mm3 (4.5-11.0) 10/25/16 06:01 RBC 3.95 M/mm3 (3.65-5.03) 10/25/16 06:01 Hgb 12.1 gm/dl (11.8-15.2) 10/25/16 06:01 Hct 36.1 % (35.5-45.6) 10/25/16 06:01 MCV 91 fl (84-94) 10/25/16 06:01 MCH 31 pg (28-32) 10/25/16 06:01 MCHC 33 % (32-34) 10/25/16 06:01 RDW 17.4 % (13.2-15.2) H 10/25/16 06:01 Plt Count 98 K/mm3 (140-440) L 10/25/16 06:01 Lymph % (Auto) 36.4 % (13.4-35.0) H 10/25/16 06:01 [place] % (Auto) 13.1 % (0.0-7.3) H 10/25/16 06:01 Eos % (Auto) 6.3 % (0.0-4.3) H 10/25/16 06:01 Baso % (Auto) 0.4 % (0.0-1.8) 10/25/16 06:01 Lymph # 1.7 K/mm3 (1.2-5.4) 10/25/16 06:01 [place] # 0.6 K/mm3 (0.0-0.8) 10/25/16 06:01 Eos # 0.3 K/mm3 (0.0-0.4) 10/25/16 06:01 Baso # 0.0 K/mm3 (0.0-0.1) 10/25/16 06:01 Seg Neutrophils % 43.8 % (40.0-70.0) 10/25/16 06:01 Seg Neutrophils # 2.1 K/mm3 (1.8-7.7) 10/25/16 06:01 ESR 16 mm/Hr (0-20) 10/24/16 03:00 VBG pH 7.345 (7.320-7.420) 10/24/16 03:00 Sodium 140 mmol/L (137-145) 10/25/16 06:01 Potassium 4.3 mmol/L (3.6-5.0) 10/25/16 06:01 Chloride 106.6 mmol/L (98-107) 10/25/16 06:01 Carbon Dioxide 21 mmol/L (22-30) L 10/25/16 06:01 Anion Gap 17 mmol/L 10/25/16 06:01 BUN 9 mg/dL (9-20) 10/25/16 06:01 Creatinine 1.2 mg/dL (0.8-1.5) 10/25/16 06:01 Estimated GFR > 60 ml/min 10/25/16 06:01 BUN/Creatinine Ratio 7.50 % 10/25/16 06:01 Glucose 81 mg/dL (75-100) 10/25/16 06:01 Lactic Acid 1.50 mmol/L (0.7-2.0) 10/25/16 06:01 Calcium 8.1 mg/dL (8.4-10.2) L 10/25/16 06:01 Magnesium 1.50 mg/dL (1.7-2.3) L 10/25/16 06:01 Total Bilirubin 1.00 mg/dL (0.1-1.2) 10/25/16 06:01 Direct Bilirubin 0.3 mg/dL (0-0.2) H 10/25/16 06:01 Indirect Bilirubin 0.7 mg/dL 10/25/16 06:01 AST 29 units/L (5-40) 10/25/16 06:01 ALT 11 units/L (7-56) 10/25/16 06:01 Alkaline Phosphatase 73 units/L (35-129) 10/25/16 06:01 Total Creatine Kinase 239 units/L (55-170) H 10/24/16 03:15 C-Reactive Protein 0.60 mg/dL (0.00-1.30) 10/25/16 06:01 Total Protein 5.8 g/dL (6.3-8.2) L 10/25/16 06:01 Albumin 2.8 g/dL (3.9-5) L 10/25/16 06:01 Albumin/Globulin Ratio 0.9 % 10/25/16 06:01 Urine Color Yellow (Yellow) 10/24/16 Unknown Urine Turbidity Clear (Clear) 10/24/16 Unknown Urine pH 5.0 (5.0-7.0) 10/24/16 Unknown Ur Specific [place] 1.016 (1.003-1.030) 10/24/16 Unknown Urine Protein <15 mg/dl mg/dL (Negative) 10/24/16 Unknown Urine Glucose (UA) Neg mg/dL (Negative) 10/24/16 Unknown Urine Ketones Neg mg/dL (Negative) 10/24/16 Unknown Urine Blood Neg (Negative) 10/24/16 Unknown Urine Nitrite Neg (Negative) 10/24/16 Unknown Urine Bilirubin Neg (Negative) 10/24/16 Unknown Urine Urobilinogen < 2.0 mg/dL (<2.0) 10/24/16 Unknown Ur Leukocyte Esterase Neg (Negative) 10/24/16 Unknown Urine WBC (Auto) 6.0 /HPF (0.0-6.0) 10/24/16 Unknown Urine RBC (Auto) 4.0 /HPF (0.0-6.0) 10/24/16 Unknown U Epithel Cells (Auto) 1.0 /HPF (0-13.0) 10/24/16 Unknown Hyaline Casts 1 /LPF 10/24/16 Unknown Urine Mucus Few /HPF 10/24/16 Unknown Urine Opiates Screen Presumptive negative 10/24/16 Unknown Urine Methadone Screen Presumptive negative 10/24/16 Unknown Ur Barbiturates Screen Presumptive negative 10/24/16 Unknown Ur Phencyclidine Scrn Presumptive negative 10/24/16 Unknown Ur Amphetamines Screen Presumptive positive 10/24/16 Unknown U Benzodiazepines Scrn Presumptive negative 10/24/16 Unknown Urine Cocaine Screen Presumptive positive 10/24/16 Unknown U Marijuana (THC) Screen Presumptive negative 10/24/16 Unknown Drugs of Abuse Note Disclamer 10/24/16 Unknown
[2016-10-25] MEDS: SYNTHROID PO SCH (09:04)
[2016-10-25] MEDS: ALDACTONE PO SCH (09:04)
[2016-10-25] MEDS: XIFAXAN PO SCH ×2 (09:04→23:37)
[2016-10-25] MEDS: VITAMIN B-1 PO SCH (09:04)
[2016-10-25] MEDS: CEPHULAC PO SCH ×2 (09:04→23:36)
[2016-10-25] MEDS: THERAGRAN Tab PO SCH (09:04)
[2016-10-25] MEDS: celeXA PO SCH (09:05)
[2016-10-25] MEDS: PROTONIX PO SCH ×2 (09:05→23:37)
[2016-10-25] MEDS ORDERED: MAGNESIUM SULFATE IV ONE (09:39)
[2016-10-25] MEDS ORDERED: MAGNESIUM SULFATE 1 GM in NACL 0.9% 50 ML IV ONE (11:00)
--- NOTE | 2016-10-25 11:21 | Consultation ---
History of Present Illness - Reason for Consult Consult date: 10/25/16 Osteomyelitis Left Ankle Requesting physician: LUCIANO MADISON - History of Present Illness Mr. Henriquez is a 55-year-old man with chronic HCV infection and a history of left ankle surgery s/p hardware removal in 2017 who presents with severe left ankle pain. Xray of the ankle showed bony irregularities of the lateral aspect of the distal tibia and talus. Blood cultures show no growth to date. He has been evaluated for this at [facility] with reported growth of MRSA. IV antibiotic treatment was offered but he left AMA. He is here now requesting continued treatment of the pain and infection. ID consultation is requested for further treatment recommendations. Past History Past Medical History: hepatitis (Chronic HCV), hypothyroidism, other Past Surgical History: Other (Brain ) Social history: lives with family, smoking, alcohol abuse, other (Illicit Drug Use (cocaine, methamphetamines)) Family history: CAD Medications and Allergies Allergies Allergy/AdvReac Type Severity Reaction Status Date / Time No Known Allergies Allergy Verified 10/23/16 21:52 Home Medications Medication Instructions Recorded Confirmed Last Taken Type Levothyroxine [Synthroid] 88 mcg PO DAILY #30 tablet 07/17/16 10/24/16 Unknown Rx Multivitamin Tab [Multiple Vitamin 1 each PO DAILY #30 tablet 07/17/16 10/24/16 Unknown Rx TAB (Theragran)] Omeprazole 20 mg PO QDAY #30 07/17/16 10/24/16 Unknown Rx Rifaximin [Xifaxan] 550 mg PO BID #60 tablet 07/17/16 10/24/16 Unknown Rx Spironolactone 50 mg PO QDAY #30 07/17/16 10/24/16 Unknown Rx Lactulose 15 - 30 ml PO TID PRN 30 Days 08/04/16 10/24/16 Unknown Rx Thiamine [Vitamin B-1] 100 mg PO QDAY #30 tablet 08/04/16 10/24/16 Unknown Rx chlordiazePOXIDE [Librium] 10 mg PO DAILY #5 capsule 08/04/16 10/24/16 Unknown Rx oxyCODONE [Roxicodone TAB] 5 mg PO Q6HR #10 tablet 08/04/16 10/24/16 Unknown Rx Levothyroxine [Synthroid] 88 mcg PO DAILY@0600 #30 tablet 08/09/16 10/24/16 Unknown Rx Multivitamin Tab [Multiple Vitamin 1 each PO QDAY #30 tablet 08/09/16 10/24/16 Unknown Rx TAB (Theragran)] Pantoprazole [Protonix TAB] 40 mg PO BID #30 tablet 08/09/16 10/24/16 Unknown Rx Rifaximin [Xifaxan] 550 mg PO BID #30 tablet 08/09/16 10/24/16 Unknown Rx Spironolactone [Aldactone] 50 mg PO QDAY #30 tablet 08/09/16 10/24/16 Unknown Rx chlordiazePOXIDE [Librium] 10 mg PO DAILY #10 capsule 08/09/16 10/24/16 Unknown Rx traMADol [Ultram] 50 mg PO Q6HR PRN #20 tablet 08/09/16 10/24/16 Unknown Rx Citalopram Hydrobromide 20 mg PO DAILY MDD 20 mg 10/24/16 10/24/16 10/23/16 History [Citalopram HBr] 20 mg Lactulose [Lactulose] 15 ml PO BID MDD 15 ml 10/24/16 10/24/16 10/22/16 History 15 ml Levothyroxine [Synthroid] 88 mcg PO QAM 10/24/16 10/24/16 10/24/16 History 88 mcg Multivitamin Tab [Multiple Vitamin 1 tab PO DAILY MDD 1 tablet 10/24/1610/23/16 History TAB (Theragran)] 1 tab Oxycodone HCl/Acetaminophen 1 tab PO Q6H PRN MDD 1 tab 10/24/16 10/24/16 History [Percocet 10/325 mg] 1 tab Quetiapine Fumarate [SEROquel XR] 25 mg PO HS MDD 25 mg 10/24/16 10/24/16 History 25 mg Rifaximin [Xifaxan] 550 mg PO BID 10/24/16 10/24/16 10/17/16 History 550 mg Spironolactone [Aldactone] 50 mg PO QDAY MDD 50 mg 10/24/16 10/24/16 10/23/16 History 50 mg Sulfamethoxazole/Trimethoprim 1 each PO BID 10/24/16 10/24/16 10/23/16 History [Bactrim DS TAB] 1 tab Active Meds: Active Medications Citalopram Hydrobromide (Celexa) 20 mg PO DAILY [facility] Last Admin: 10/25/16 09:05 Dose: 20 mg Enoxaparin Sodium (Lovenox) 40 mg SUB-Q QDAY@2200 [facility] Last Admin: 10/24/16 22:00 Dose: 40 mg Vancomycin HCl 1,250 mg/ (Sodium Chloride) 275 mls @ 166.667 mls/hr IV Q24H [facility] Last Admin: 10/25/16 04:40 Dose: 166.667 mls/hr Sodium Chloride (Nacl 0.9% 1000 Ml) 1,000 mls @ 75 mls/hr IV DIRECT [facility] Last Admin: 10/25/16 03:03 Dose: 75 mls/hr Piperacillin Sod/Tazobactam Sod (Zosyn/Ns 4.5gm/100ml) 4.5 gm in 100 mls @ 200 mls/hr IV Q8HR [facility] PRN Reason: Protocol Last Admin: 10/25/16 06:29 Dose: 200 mls/hr Magnesium Sulfate 1 gm/ Sodium (Chloride) 52 mls @ 52 mls/hr IV ONCE ONE Stop: 10/25/16 11:59 Lactulose (Cephulac) 20 gm PO BID [facility] Last Admin: 10/25/16 09:04 Dose: 20 gm Levothyroxine Sodium (Synthroid) 88 mcg PO QAM [facility] Last Admin: 10/25/16 09:04 Dose: 88 mcg Morphine Sulfate (Morphine) 2 mg IV Q4H PRN PRN Reason: Pain, Moderate (4-6) Last Admin: 10/25/16 06:52 Dose: 2 mg Multivitamins (Theragran Tab) 1 each PO DAILY [facility] Last Admin: 10/25/16 09:04 Dose: 1 each Ondansetron HCl (Zofran) 4 mg IM Q4H PRN PRN Reason: Nausea And Vomiting Last Admin: 10/24/16 17:00 Dose: 4 mg Pantoprazole Sodium (Protonix) 40 mg PO BID [facility] Last Admin: 10/25/16 09:05 Dose: 40 mg Quetiapine Fumarate (Seroquel) 25 mg PO QHS [facility] Last Admin: 10/24/16 21:52 Dose: 25 mg Rifaximin (Xifaxan) 550 mg PO BID [facility] Last Admin: 10/25/16 09:04 Dose: 550 mg Spironolactone (Aldactone) 50 mg PO QDAY [facility] Last Admin: 10/25/16 09:04 Dose: 50 mg Thiamine HCl (Vitamin B-1) 100 mg PO QDAY [facility] Last Admin: 10/25/16 09:04 Dose: 100 mg Tramadol HCl (Ultram) 50 mg PO Q6HR PRN PRN Reason: Pain Vancomycin HCl (Vancomycin Pharmacy To Dose) 1 each IV PKCONSULT [facility] PRN Reason: Protocol Review of Systems All systems: negative Constitutional: no fever, no chills, no sweats Cardiovascular: no chest pain, no shortness of breath Respiratory: no cough Gastrointestinal: no abdominal pain, no nausea, no vomiting, no diarrhea Genitourinary Male: no dysuria Musculoskeletal: shooting leg pain, limitation of motion Integumentary: no rash, no pruritis, no wounds Physical Examination - Constitutional Vitals: Vital Signs Temp Pulse Resp BP Pulse Ox 97.8 F 68 20 130/78 95 10/25/16 07:00 10/25/16 09:04 10/25/16 07:00 10/25/16 09:04 10/25/16 07:00 Temperature -Last 24 Hours Temperature 97.8 F Temperature 98.4 F Temperature 98.9 F Temperature 97.9 F General appearance: Present: no acute distress, well-nourished - Neck Neck: Present: supple - Respiratory Respiratory: bilateral: CTA - Cardiovascular Rhythm: regular Heart Sounds: Present: S1 & S2 - Extremities Extremity abnormal: edema (mild edema of left ankle with a well-healing lateral incision, no fluctuance, purulence or increased warmth are noted; there is limited ROM at the left ankle) - Abdominal General gastrointestinal: Present: soft, non-distended - Psychiatric Psychiatric: appropriate mood/affect - Neurologic Neurologic: moves all extremities Results - Labs CBC & Chem 7: 10/25/16 06:01 10/25/16 06:01 Labs: Abnormal lab results 10/25/16 10/25/16 Range/Units 06:01 06:01 RDW 17.4 H (13.2-15.2) % Plt Count 98 L (140-440) K/mm3 Lymph % (Auto) 36.4 H (13.4-35.0) % [place] % (Auto) 13.1 H (0.0-7.3) % Eos % (Auto) 6.3 H (0.0-4.3) % Carbon Dioxide 21 L (22-30) mmol/L Calcium 8.1 L (8.4-10.2) mg/dL Magnesium 1.50 L (1.7-2.3) mg/dL Direct Bilirubin 0.3 H (0-0.2) mg/dL Total Protein 5.8 L (6.3-8.2) g/dL Albumin 2.8 L (3.9-5) g/dL Microbiology 10/24/16 03:00 Peripheral/Venous Blood Culture - Preliminary NO GROWTH AFTER 24 HOURS 10/24/16 03:15 Peripheral/Venous Blood Culture - Preliminary NO GROWTH AFTER 24 HOURS Assessment and Plan - Patient Problems (1) Ankle osteomyelitis, left Current Visit: No Status: Chronic Qualifiers: Osteomyelitis type: other chronic Qualified Code(s): M86.672 - Other chronic osteomyelitis, left ankle and foot Plan to address problem: 1. Will need micro reports from [facility] to guide antibiotic therapy. I will ask case management to assist in getting records. 2. If no oral options exist, then patient will need LTAC placement as he is not a candidate for IV use given his illicit drug use history and prior non- compliance with medical advice. 3. Okay to continue empiric Vancomycin for now.
[2016-10-25] MEDS ORDERED: ATIVAN IV PRN (13:01)
[2016-10-25] MEDS: LOVENOX SUB-Q SCH (23:37)
[2016-10-26] MEDS: MORPHINE IV PRN ×4 (00:01→18:28)
[2016-10-26] MEDS: VANCOMYCIN 1,250 MG in NACL 0.9% 250ML 250 ML IV SCH (04:40)
[2016-10-26] MEDS: ZOSYN/NS 4.5GM/100ML 4.5 GM/100 ML VIAL IV SCH ×2 (06:19→18:16)
[2016-10-26] MEDS ORDERED: LIBRIUM PO SCH (10:00)
[2016-10-26] MEDS: VITAMIN B-1 PO SCH (11:24)
[2016-10-26] MEDS: celeXA PO SCH (11:24)
[2016-10-26] MEDS: CEPHULAC PO SCH ×2 (11:24→22:30)
[2016-10-26] MEDS: SYNTHROID PO SCH (11:25)
[2016-10-26] MEDS: ALDACTONE PO SCH (11:25)
[2016-10-26] MEDS: XIFAXAN PO SCH ×2 (11:25→22:30)
[2016-10-26] MEDS: THERAGRAN Tab PO SCH (11:25)
[2016-10-26] MEDS: PROTONIX PO SCH ×2 (11:25→22:30)
--- NOTE | 2016-10-26 11:59 | Progress Note ---
Assessment and Plan Assessment and plan: --Osteomyelitis left ankle IV antibiotics, cultures, supportive care Orthopedic and ID following --Acute kidney injury/vasomotor nephropathy Significantly improved, renal function within normal limits Avoid nephrotoxic medications --History of hepatitis C/cirrhosis Continue current management --Hypothyroidism; stable on Synthroid --Alcohol abuse; closely monitor for any withdrawal symptoms CIWA protocol as needed --History of cocaine use; counseling done patient strongly advised to quit cocaine --Moderate protein calorie malnutrition; nutrition supplements and supportive care --Ongoing tobacco use; smoking cessation counseling done patient strongly advised to quit, nicotine patch as needed --DVT prophylaxis with Lovenox monitor the patient and adjust management as needed History Interval history: Patient feels better Low-grade fever, on IV antibiotics No new events reported by the nursing staff Hospitalist Physical - Constitutional Vitals: Temp Pulse Resp BP Pulse Ox 100.3 F H 66 20 120/70 95 10/26/16 07:59 10/26/16 07:59 10/26/16 07:59 10/26/16 07:59 10/26/16 07:59 General appearance: Present: no acute distress, well-nourished - EENT Eyes: Present: PERRL, EOM intact - Neck Neck: Present: supple, normal ROM - Respiratory Respiratory effort: normal Respiratory: negative: rales, rhonchi, wheezing - Cardiovascular Rhythm: regular Heart Sounds: Present: S1 & S2 - Extremities Extremities: no ischemia, abnormal (ankle dressing in place) - Abdominal General gastrointestinal: soft, non-tender, non-distended, normal bowel sounds - Integumentary Integumentary: Present: clear, warm - Psychiatric Psychiatric: appropriate mood/affect, cooperative - Neurologic Neurologic: CNII-XII intact, moves all extremities Results - Labs CBC & Chem 7: 10/25/16 06:01 10/25/16 06:01 Labs: Laboratory Last Values WBC 4.8 K/mm3 (4.5-11.0) 10/25/16 06:01 RBC 3.95 M/mm3 (3.65-5.03) 10/25/16 06:01 Hgb 12.1 gm/dl (11.8-15.2) 10/25/16 06:01 Hct 36.1 % (35.5-45.6) 10/25/16 06:01 MCV 91 fl (84-94) 10/25/16 06:01 MCH 31 pg (28-32) 10/25/16 06:01 MCHC 33 % (32-34) 10/25/16 06:01 RDW 17.4 % (13.2-15.2) H 10/25/16 06:01 Plt Count 98 K/mm3 (140-440) L 10/25/16 06:01 Lymph % (Auto) 36.4 % (13.4-35.0) H 10/25/16 06:01 [place] % (Auto) 13.1 % (0.0-7.3) H 10/25/16 06:01 Eos % (Auto) 6.3 % (0.0-4.3) H 10/25/16 06:01 Baso % (Auto) 0.4 % (0.0-1.8) 10/25/16 06:01 Lymph # 1.7 K/mm3 (1.2-5.4) 10/25/16 06:01 [place] # 0.6 K/mm3 (0.0-0.8) 10/25/16 06:01 Eos # 0.3 K/mm3 (0.0-0.4) 10/25/16 06:01 Baso # 0.0 K/mm3 (0.0-0.1) 10/25/16 06:01 Seg Neutrophils % 43.8 % (40.0-70.0) 10/25/16 06:01 Seg Neutrophils # 2.1 K/mm3 (1.8-7.7) 10/25/16 06:01 ESR 16 mm/Hr (0-20) 10/24/16 03:00 VBG pH 7.345 (7.320-7.420) 10/24/16 03:00 Sodium 140 mmol/L (137-145) 10/25/16 06:01 Potassium 4.3 mmol/L (3.6-5.0) 10/25/16 06:01 Chloride 106.6 mmol/L (98-107) 10/25/16 06:01 Carbon Dioxide 21 mmol/L (22-30) L 10/25/16 06:01 Anion Gap 17 mmol/L 10/25/16 06:01 BUN 9 mg/dL (9-20) 10/25/16 06:01 Creatinine 1.2 mg/dL (0.8-1.5) 10/25/16 06:01 Estimated GFR > 60 ml/min 10/25/16 06:01 BUN/Creatinine Ratio 7.50 % 10/25/16 06:01 Glucose 81 mg/dL (75-100) 10/25/16 06:01 Lactic Acid 1.50 mmol/L (0.7-2.0) 10/25/16 06:01 Calcium 8.1 mg/dL (8.4-10.2) L 10/25/16 06:01 Magnesium 1.50 mg/dL (1.7-2.3) L 10/25/16 06:01 Total Bilirubin 1.00 mg/dL (0.1-1.2) 10/25/16 06:01 Direct Bilirubin 0.3 mg/dL (0-0.2) H 10/25/16 06:01 Indirect Bilirubin 0.7 mg/dL 10/25/16 06:01 AST 29 units/L (5-40) 10/25/16 06:01 ALT 11 units/L (7-56) 10/25/16 06:01 Alkaline Phosphatase 73 units/L (35-129) 10/25/16 06:01 Total Creatine Kinase 239 units/L (55-170) H 10/24/16 03:15 C-Reactive Protein 0.60 mg/dL (0.00-1.30) 10/25/16 06:01 Total Protein 5.8 g/dL (6.3-8.2) L 10/25/16 06:01 Albumin 2.8 g/dL (3.9-5) L 10/25/16 06:01 Albumin/Globulin Ratio 0.9 % 10/25/16 06:01 Urine Color Yellow (Yellow) 10/24/16 Unknown Urine Turbidity Clear (Clear) 10/24/16 Unknown Urine pH 5.0 (5.0-7.0) 10/24/16 Unknown Ur Specific [place] 1.016 (1.003-1.030) 10/24/16 Unknown Urine Protein <15 mg/dl mg/dL (Negative) 10/24/16 Unknown Urine Glucose (UA) Neg mg/dL (Negative) 10/24/16 Unknown Urine Ketones Neg mg/dL (Negative) 10/24/16 Unknown Urine Blood Neg (Negative) 10/24/16 Unknown Urine Nitrite Neg (Negative) 10/24/16 Unknown Urine Bilirubin Neg (Negative) 10/24/16 Unknown Urine Urobilinogen < 2.0 mg/dL (<2.0) 10/24/16 Unknown Ur Leukocyte Esterase Neg (Negative) 10/24/16 Unknown Urine WBC (Auto) 6.0 /HPF (0.0-6.0) 10/24/16 Unknown Urine RBC (Auto) 4.0 /HPF (0.0-6.0) 10/24/16 Unknown U Epithel Cells (Auto) 1.0 /HPF (0-13.0) 10/24/16 Unknown Hyaline Casts 1 /LPF 10/24/16 Unknown Urine Mucus Few /HPF 10/24/16 Unknown Urine Opiates Screen Presumptive negative 10/24/16 Unknown Urine Methadone Screen Presumptive negative 10/24/16 Unknown Ur Barbiturates Screen Presumptive negative 10/24/16 Unknown Ur Phencyclidine Scrn Presumptive negative 10/24/16 Unknown Ur Amphetamines Screen Presumptive positive 10/24/16 Unknown U Benzodiazepines Scrn Presumptive negative 10/24/16 Unknown Urine Cocaine Screen Presumptive positive 10/24/16 Unknown U Marijuana (THC) Screen Presumptive negative 10/24/16 Unknown Drugs of Abuse Note Disclamer 10/24/16 Unknown
[2016-10-26] MEDS ORDERED: MAGNESIUM SULFATE 2GM/50ML 2 GM/50 ML BAG IV ONE (13:00)
[2016-10-26] MEDS ORDERED: VANCOMYCIN 1,250 MG in NACL 0.9% 250ML 250 ML IV SCH (17:00)
--- NOTE | 2016-10-26 17:52 | Progress Note ---
Assessment and Plan - Patient Problems (1) Ankle osteomyelitis, left Current Visit: No Status: Chronic Qualifiers: Osteomyelitis type: other chronic Qualified Code(s): M86.672 - Other chronic osteomyelitis, left ankle and foot Plan to address problem: 1. Cultures of left ankle wound from June 2016 show MSSA with a Vancomycin PREETHI=2. 2. Awaiting more recent cultures from [facility] admission. 3. For now, will change to Nafcillin pending further micro data. No Rifampin as all hardware is supposedly removed. 4. This patient is expected to need several weeks of antibiotics, presumably IV therapy. He is NOT a candidate for home infusion and will therefore likely need LTAC or SNF placement. Patient agress to placement. Subjective Date of service: 10/26/16 Principal diagnosis: Left Ankle Osteomyelitis Interval history: Remains stable, intermittent low-grade temps. Continue left ankle pain. Objective - Constitutional Vitals: Vital Signs Temp Pulse Resp BP Pulse Ox 98.9 F 68 20 126/73 96 10/26/16 12:05 10/26/16 12:05 10/26/16 12:05 10/26/16 12:05 10/26/16 12:05 Temperature -Last 24 Hours Temperature 98.9 F Temperature 100.3 F Temperature 100.4 F General appearance: Present: no acute distress - Respiratory Respiratory effort: normal Respiratory: bilateral: CTA - Cardiovascular Rhythm: regular Heart Sounds: Present: S1 & S2 Extremities: No edema (left ankle with no significant edema, unchanged intervally with well-healing lateral incision, no increased warmth or overlying erythema) - Gastrointestinal General gastrointestinal: Present: soft, non-distended - Integumentary Integumentary: clear, no rash - Labs CBC & Chem 7: 10/25/16 06:01 10/25/16 06:01 Labs: Microbiology 10/24/16 03:00 Peripheral/Venous Blood Culture - Preliminary NO GROWTH AFTER 48 HOURS 10/24/16 03:15 Peripheral/Venous Blood Culture - Preliminary NO GROWTH AFTER 48 HOURS
[2016-10-26] MEDS: NAFCILLIN 2 GM in NACL 0.9% 100 ML IV SCH ×2 (20:00→22:00)
[2016-10-26] MEDS ORDERED: AMBIEN PO PRN (22:00)
[2016-10-26] MEDS: LOVENOX SUB-Q SCH (22:30)
[2016-10-27] MEDS: MORPHINE IV PRN ×3 (00:48→17:47)
[2016-10-27] MEDS: NAFCILLIN 2 GM in NACL 0.9% 100 ML IV SCH ×9 (02:00→20:42)
[2016-10-27] MEDS: NACL 0.9% 1000 ML 1,000 ML IV SCH ×2 (02:53→20:44)
[2016-10-27] MEDS ORDERED: MAGNESIUM SULFATE 2GM/50ML 2 GM/50 ML BAG IV ONE (08:08)
[2016-10-27] MEDS: SYNTHROID PO SCH (11:39)
[2016-10-27] MEDS: VITAMIN B-1 PO SCH (11:39)
[2016-10-27] MEDS: CEPHULAC PO SCH ×2 (11:39→22:32)
[2016-10-27] MEDS: MAG-OX PO SCH ×2 (11:39→22:32)
[2016-10-27] MEDS: THERAGRAN Tab PO SCH (11:40)
[2016-10-27] MEDS: celeXA PO SCH (11:40)
[2016-10-27] MEDS: LIBRIUM PO SCH (11:40)
[2016-10-27] MEDS: XIFAXAN PO SCH ×2 (11:40→22:32)
[2016-10-27] MEDS: PROTONIX PO SCH ×2 (11:40→22:32)
[2016-10-27] MEDS: ALDACTONE PO SCH (11:41)
--- NOTE | 2016-10-27 16:42 | Consultation ---
History of Present Illness - Reason for Consult Consult date: 10/27/16 Reason for consult: psychiatric evaluation, med management - Chief Complaint Chief complaint: "Depression and anxiety" 55 year old male seen on the medical floor for psychiatric evaluation. He was admitted for osteomyelitis. He reports depression and anxiety and is currently seeing an outpatient psychiatrist for medication management. Current symptoms of anhedonia, depressed mood, restlessness, difficulty concentrating, frequent worry, and racing thoughts at night. He denies suicidal thoughts and states it has been a while since he had suicidal thoughts. He denies a history of attempts. He takes celexa 20mg and seroquel 25mg hs and reports missing about 2 doses weekly. He denies a history of manic symptoms. No psychotic symptoms reported. No homicidal. He reports stressors of not being able to work, is disabled, has physical health problems, and lost his home. He is homeless and has no family support. He plans to go to a homeless [facility] when he is discharged. Medications and Allergies Allergies Allergy/AdvReac Type Severity Reaction Status Date / Time No Known Allergies Allergy Verified 10/23/16 21:52 Home Medications Medication Instructions Recorded Confirmed Last Taken Type Levothyroxine [Synthroid] 88 mcg PO DAILY #30 tablet 07/17/16 10/24/16 Unknown Rx Multivitamin Tab [Multiple Vitamin 1 each PO DAILY #30 tablet 07/17/16 10/24/16 Unknown Rx TAB (Theragran)] Omeprazole 20 mg PO QDAY #30 07/17/16 10/24/16 Unknown Rx Rifaximin [Xifaxan] 550 mg PO BID #60 tablet 07/17/16 10/24/16 Unknown Rx Spironolactone 50 mg PO QDAY #30 07/17/16 10/24/16 Unknown Rx Lactulose 15 - 30 ml PO TID PRN 30 Days 08/04/16 10/24/16 Unknown Rx Thiamine [Vitamin B-1] 100 mg PO QDAY #30 tablet 08/04/16 10/24/16 Unknown Rx chlordiazePOXIDE [Librium] 10 mg PO DAILY #5 capsule 08/04/16 10/24/16 Unknown Rx oxyCODONE [Roxicodone TAB] 5 mg PO Q6HR #10 tablet 08/04/16 10/24/16 Unknown Rx Levothyroxine [Synthroid] 88 mcg PO DAILY@0600 #30 tablet 08/09/16 10/24/16 Unknown Rx Multivitamin Tab [Multiple Vitamin 1 each PO QDAY #30 tablet 08/09/16 10/24/16 Unknown Rx TAB (Theragran)] Pantoprazole [Protonix TAB] 40 mg PO BID #30 tablet 08/09/16 10/24/16 Unknown Rx Rifaximin [Xifaxan] 550 mg PO BID #30 tablet 08/09/16 10/24/16 Unknown Rx Spironolactone [Aldactone] 50 mg PO QDAY #30 tablet 08/09/16 10/24/16 Unknown Rx chlordiazePOXIDE [Librium] 10 mg PO DAILY #10 capsule 08/09/16 10/24/16 Unknown Rx traMADol [Ultram] 50 mg PO Q6HR PRN #20 tablet 08/09/16 10/24/16 Unknown Rx Citalopram Hydrobromide 20 mg PO DAILY MDD 20 mg 10/24/16 10/24/16 10/23/16 History [Citalopram HBr] 20 mg Lactulose [Lactulose] 15 ml PO BID MDD 15 ml 10/24/16 10/24/16 10/22/16 History 15 ml Levothyroxine [Synthroid] 88 mcg PO QAM 10/24/16 10/24/16 10/24/16 History 88 mcg Multivitamin Tab [Multiple Vitamin 1 tab PO DAILY MDD 1 tablet 10/24/1610/23/16 History TAB (Theragran)] 1 tab Oxycodone HCl/Acetaminophen 1 tab PO Q6H PRN MDD 1 tab 10/24/16 10/24/16 History [Percocet 10/325 mg] 1 tab Quetiapine Fumarate [SEROquel XR] 25 mg PO HS MDD 25 mg 10/24/16 10/24/16 History 25 mg Rifaximin [Xifaxan] 550 mg PO BID 10/24/16 10/24/16 10/17/16 History 550 mg Spironolactone [Aldactone] 50 mg PO QDAY MDD 50 mg 10/24/16 10/24/16 10/23/16 History 50 mg Sulfamethoxazole/Trimethoprim 1 each PO BID 10/24/16 10/24/1617 History [Bactrim DS TAB] 1 tab Active Meds: Active Medications Chlordiazepoxide HCl (Librium) 10 mg PO DAILY [facility] Last Admin: 10/27/16 11:40 Dose: 10 mg Citalopram Hydrobromide (Celexa) 20 mg PO DAILY [facility] Last Admin: 10/27/16 11:40 Dose: 20 mg Enoxaparin Sodium (Lovenox) 40 mg SUB-Q QDAY@2200 [facility] Last Admin: 10/26/16 22:30 Dose: 40 mg Sodium Chloride (Nacl 0.9% 1000 Ml) 1,000 mls @ 75 mls/hr IV DIRECT [facility] Last Admin: 10/27/16 02:53 Dose: 75 mls/hr Nafcillin Sodium 2 gm/ Sodium (Chloride) 100 mls @ 100 mls/30 min IV Q4H [facility] PRN Reason: Protocol Last Admin: 10/27/16 14:34 Dose: 100 mls/30 min Lactulose (Cephulac) 20 gm PO BID [facility] Last Admin: 10/27/16 11:39 Dose: 20 gm Levothyroxine Sodium (Synthroid) 88 mcg PO QAM [facility] Last Admin: 10/27/16 11:39 Dose: 88 mcg Lorazepam (Ativan) 2 mg IV Q4H PRN PRN Reason: Agitation Magnesium Oxide (Mag-Ox) 400 mg PO BID [facility] Last Admin: 10/27/16 11:39 Dose: 400 mg Morphine Sulfate (Morphine) 2 mg IV Q6H PRN PRN Reason: Pain, Moderate (4-6) Last Admin: 10/27/16 11:50 Dose: 2 mg Multivitamins (Theragran Tab) 1 each PO DAILY [facility] Last Admin: 10/27/16 11:40 Dose: 1 each Ondansetron HCl (Zofran) 4 mg IM Q4H PRN PRN Reason: Nausea And Vomiting Last Admin: 10/24/16 17:00 Dose: 4 mg Pantoprazole Sodium (Protonix) 40 mg PO BID [facility] Last Admin: 10/27/16 11:40 Dose: 40 mg Quetiapine Fumarate (Seroquel) 25 mg PO QHS [facility] Last Admin: 10/26/16 22:30 Dose: 25 mg Rifaximin (Xifaxan) 550 mg PO BID [facility] Last Admin: 10/27/16 11:40 Dose: 550 mg Spironolactone (Aldactone) 50 mg PO QDAY [facility] Last Admin: 10/27/16 11:41 Dose: 50 mg Thiamine HCl (Vitamin B-1) 100 mg PO QDAY [facility] Last Admin: 10/27/16 11:39 Dose: 100 mg Tramadol HCl (Ultram) 50 mg PO Q6HR PRN PRN Reason: Pain Zolpidem Tartrate (Ambien) 5 mg PO QHS PRN PRN Reason: Sleep Last Admin: 10/26/16 23:15 Dose: 5 mg Past psychiatric history - Past Medical History Past Medical History: hepatitis, liver disease Past Surgical History: Other (pins in ankle) - past Psychiatric treatment and history Psych: Anxiety Mental Status Exam - Vital signs Last Vital Signs Temp 97.9 F 10/27/16 08:00 Pulse 86 10/27/16 11:41 Resp 20 10/27/16 08:00 BP 104/62 10/27/16 11:41 Pulse Ox 97 10/27/16 08:00 Results Result Diagrams: 10/25/16 06:01 10/25/16 06:01 All other labs normal. Assessment and Plan Assessment and plan: Impression: Major depressive disorder Generalized anxiety disorder positive screen for cocaine and amphetamine He denies substance use. ddx: bipolar disorder Recommendations: Continue home medications. SSRI will not be increased as patient frequently misses 1-2 doses weekly Continue Celexa 20mg daily Increase Seroquel to 50mg hs for sleep
--- NOTE | 2016-10-27 19:09 | Progress Note ---
Assessment and Plan Assessment and plan: --Osteomyelitis left ankle IV antibiotics, cultures, supportive care Orthopedic and ID following --Hypomagnesemia; replace per protocol and monitor levels --Acute kidney injury/vasomotor nephropathy Significantly improved, renal function within normal limits Avoid nephrotoxic medications --History of hepatitis C/cirrhosis Continue current management --Hypothyroidism; stable on Synthroid --Alcohol abuse; closely monitor for any withdrawal symptoms CIWA protocol as needed --History of cocaine use; counseling done patient strongly advised to quit cocaine --Moderate protein calorie malnutrition; nutrition supplements and supportive care --Ongoing tobacco use; smoking cessation counseling done patient strongly advised to quit, nicotine patch as needed --DVT prophylaxis with Lovenox monitor the patient and adjust management as needed Plan of care discussed with patient History Interval history: Patient seen and evaluated medical records reviewed Patient feels slightly better no new complaints B coronary oriented 3 not in acute distress ,vital signs reviewed Hospitalist Physical - Constitutional Vitals: Temp Pulse Resp BP Pulse Ox 98.7 F 70 20 120/55 98 10/27/16 16:00 10/27/16 16:00 10/27/16 16:00 10/27/16 16:00 10/27/16 16:00 General appearance: Present: no acute distress, well-nourished - EENT Eyes: Present: PERRL, EOM intact - Neck Neck: Present: supple, normal ROM - Respiratory Respiratory effort: normal Respiratory: negative: rales, rhonchi, wheezing - Cardiovascular Rhythm: regular Heart Sounds: Present: S1 & S2 - Extremities Extremities: no ischemia, No edema, abnormal (dressing around the ankle intact) - Abdominal General gastrointestinal: soft, non-tender, non-distended, normal bowel sounds - Integumentary Integumentary: Present: clear, warm - Psychiatric Psychiatric: appropriate mood/affect, cooperative - Neurologic Neurologic: CNII-XII intact, moves all extremities Results - Labs CBC & Chem 7: 10/25/16 06:01 10/25/16 06:01 Labs: Laboratory Last Values WBC 4.8 K/mm3 (4.5-11.0) 10/25/16 06:01 RBC 3.95 M/mm3 (3.65-5.03) 10/25/16 06:01 Hgb 12.1 gm/dl (11.8-15.2) 10/25/16 06:01 Hct 36.1 % (35.5-45.6) 10/25/16 06:01 MCV 91 fl (84-94) 10/25/16 06:01 MCH 31 pg (28-32) 10/25/16 06:01 MCHC 33 % (32-34) 10/25/16 06:01 RDW 17.4 % (13.2-15.2) H 10/25/16 06:01 Plt Count 98 K/mm3 (140-440) L 10/25/16 06:01 Lymph % (Auto) 36.4 % (13.4-35.0) H 10/25/16 06:01 [place] % (Auto) 13.1 % (0.0-7.3) H 10/25/16 06:01 Eos % (Auto) 6.3 % (0.0-4.3) H 10/25/16 06:01 Baso % (Auto) 0.4 % (0.0-1.8) 10/25/16 06:01 Lymph # 1.7 K/mm3 (1.2-5.4) 10/25/16 06:01 [place] # 0.6 K/mm3 (0.0-0.8) 10/25/16 06:01 Eos # 0.3 K/mm3 (0.0-0.4) 10/25/16 06:01 Baso # 0.0 K/mm3 (0.0-0.1) 10/25/16 06:01 Seg Neutrophils % 43.8 % (40.0-70.0) 10/25/16 06:01 Seg Neutrophils # 2.1 K/mm3 (1.8-7.7) 10/25/16 06:01 ESR 16 mm/Hr (0-20) 10/24/16 03:00 VBG pH 7.345 (7.320-7.420) 10/24/16 03:00 Sodium 140 mmol/L (137-145) 10/25/16 06:01 Potassium 4.3 mmol/L (3.6-5.0) 10/25/16 06:01 Chloride 106.6 mmol/L (98-107) 10/25/16 06:01 Carbon Dioxide 21 mmol/L (22-30) L 10/25/16 06:01 Anion Gap 17 mmol/L 10/25/16 06:01 BUN 9 mg/dL (9-20) 10/25/16 06:01 Creatinine 1.2 mg/dL (0.8-1.5) 10/25/16 06:01 Estimated GFR > 60 ml/min 10/25/16 06:01 BUN/Creatinine Ratio 7.50 % 10/25/16 06:01 Glucose 81 mg/dL (75-100) 10/25/16 06:01 Lactic Acid 1.50 mmol/L (0.7-2.0) 10/25/16 06:01 Calcium 8.1 mg/dL (8.4-10.2) L 10/25/16 06:01 Magnesium 1.50 mg/dL (1.7-2.3) L 10/25/16 06:01 Total Bilirubin 1.00 mg/dL (0.1-1.2) 10/25/16 06:01 Direct Bilirubin 0.3 mg/dL (0-0.2) H 10/25/16 06:01 Indirect Bilirubin 0.7 mg/dL 10/25/16 06:01 AST 29 units/L (5-40) 10/25/16 06:01 ALT 11 units/L (7-56) 10/25/16 06:01 Alkaline Phosphatase 73 units/L (35-129) 10/25/16 06:01 Total Creatine Kinase 239 units/L (55-170) H 10/24/16 03:15 C-Reactive Protein 0.60 mg/dL (0.00-1.30) 10/25/16 06:01 Total Protein 5.8 g/dL (6.3-8.2) L 10/25/16 06:01 Albumin 2.8 g/dL (3.9-5) L 10/25/16 06:01 Albumin/Globulin Ratio 0.9 % 10/25/16 06:01 Urine Color Yellow (Yellow) 10/24/16 Unknown Urine Turbidity Clear (Clear) 10/24/16 Unknown Urine pH 5.0 (5.0-7.0) 10/24/16 Unknown Ur Specific [place] 1.016 (1.003-1.030) 10/24/16 Unknown Urine Protein <15 mg/dl mg/dL (Negative) 10/24/16 Unknown Urine Glucose (UA) Neg mg/dL (Negative) 10/24/16 Unknown Urine Ketones Neg mg/dL (Negative) 10/24/16 Unknown Urine Blood Neg (Negative) 10/24/16 Unknown Urine Nitrite Neg (Negative) 10/24/16 Unknown Urine Bilirubin Neg (Negative) 10/24/16 Unknown Urine Urobilinogen < 2.0 mg/dL (<2.0) 10/24/16 Unknown Ur Leukocyte Esterase Neg (Negative) 10/24/16 Unknown Urine WBC (Auto) 6.0 /HPF (0.0-6.0) 10/24/16 Unknown Urine RBC (Auto) 4.0 /HPF (0.0-6.0) 10/24/16 Unknown U Epithel Cells (Auto) 1.0 /HPF (0-13.0) 10/24/16 Unknown Hyaline Casts 1 /LPF 10/24/16 Unknown Urine Mucus Few /HPF 10/24/16 Unknown Urine Opiates Screen Presumptive negative 10/24/16 Unknown Urine Methadone Screen Presumptive negative 10/24/16 Unknown Ur Barbiturates Screen Presumptive negative 10/24/16 Unknown Ur Phencyclidine Scrn Presumptive negative 10/24/16 Unknown Ur Amphetamines Screen Presumptive positive 10/24/16 Unknown U Benzodiazepines Scrn Presumptive negative 10/24/16 Unknown Urine Cocaine Screen Presumptive positive 10/24/16 Unknown U Marijuana (THC) Screen Presumptive negative 10/24/16 Unknown Drugs of Abuse Note Disclamer 10/24/16 Unknown
[2016-10-27] MEDS: LOVENOX SUB-Q SCH (22:32)
[2016-10-28] MEDS: NAFCILLIN 2 GM in NACL 0.9% 100 ML IV SCH ×4 (00:29→12:23)
[2016-10-28] MEDS: MORPHINE IV PRN ×4 (00:30→21:03)
[2016-10-28 08:27] LABS: BUN/Creatinine Ratio 13.75; Blood Urea Nitrogen 11 mg/dL (9-20); Calcium 8.1 mg/dL (8.4-10.2); Carbon Dioxide 25 mmol/L (22-30); Glucose 88 mg/dL (75-100)
[2016-10-28 08:28] LABS: Anion Gap 12 mmol/L; Chloride 106.4 mmol/L (98-107); Potassium 3.7 mmol/L (3.6-5.0); Sodium 140 mmol/L (137-145)
[2016-10-28] MEDS: CEPHULAC PO SCH ×2 (09:10→21:11)
[2016-10-28] MEDS: LIBRIUM PO SCH (09:11)
[2016-10-28] MEDS: THERAGRAN Tab PO SCH (09:11)
[2016-10-28] MEDS: celeXA PO SCH (09:11)
[2016-10-28] MEDS: ALDACTONE PO SCH (09:11)
[2016-10-28] MEDS: PROTONIX PO SCH ×2 (09:11→21:10)
[2016-10-28] MEDS: VITAMIN B-1 PO SCH (09:11)
[2016-10-28] MEDS: XIFAXAN PO SCH ×2 (09:11→21:10)
[2016-10-28] MEDS: MAG-OX PO SCH ×2 (09:11→21:10)
[2016-10-28] MEDS: SYNTHROID PO SCH (09:11)
[2016-10-28] MEDS: NACL 0.9% 1000 ML 1,000 ML IV SCH (09:13)
--- NOTE | 2016-10-28 10:04 | Progress Note ---
Assessment and Plan Assessment and plan: --Osteomyelitis left ankle IV nafcillin recommended by ID, cultures negative to date, supportive care Orthopedic and ID following --Hypomagnesemia; 1.5, magnesium oxide 400 mg twice a day closely monitor S --Acute kidney injury/vasomotor nephropathy Resolved, Avoid nephrotoxic medications --History of hepatitis C/cirrhosis, stable --Hypothyroidism; stable on Synthroid --Alcohol abuse; monitor for any withdrawal symptoms, CIWA protocol as needed --History of cocaine use; counseling done patient strongly advised to quit cocaine --Moderate protein calorie malnutrition; nutrition supplements and supportive care --Ongoing tobacco use; smoking cessation counseling ,advised to quit, nicotine patch as needed --DVT prophylaxis with Lovenox monitor the patient and adjust management as needed Plan of care discussed with patient Disposition; follow ID for long-term antibiotic, LTAC versus swing bed, follow orthopedic recommendations History Interval history: Patient seen and evaluated medical records reviewed No new events reported by the nursing staff Patient feels better, on nafcillin per ID Hospitalist Physical - Constitutional Vitals: Temp Pulse Resp BP Pulse Ox 98.2 F 66 16 124/60 97 10/28/16 08:00 10/28/16 08:00 10/28/16 08:00 10/28/16 08:00 10/28/16 08:00 General appearance: Present: no acute distress, well-nourished - EENT Eyes: Present: PERRL, EOM intact - Neck Neck: Present: supple, normal ROM - Respiratory Respiratory effort: normal Respiratory: negative: rales, rhonchi, wheezing - Cardiovascular Rhythm: regular Heart Sounds: Present: S1 & S2 - Extremities Extremities: no ischemia, No edema, abnormal (osteomyelitis ankle dressing in place) - Abdominal General gastrointestinal: soft, non-tender, non-distended, normal bowel sounds - Integumentary Integumentary: Present: clear, warm - Psychiatric Psychiatric: appropriate mood/affect, cooperative - Neurologic Neurologic: CNII-XII intact, moves all extremities Results - Labs CBC & Chem 7: 10/25/16 06:01 10/28/16 08:01 Labs: Laboratory Last Values WBC 4.8 K/mm3 (4.5-11.0) 10/25/16 06:01 RBC 3.95 M/mm3 (3.65-5.03) 10/25/16 06:01 Hgb 12.1 gm/dl (11.8-15.2) 10/25/16 06:01 Hct 36.1 % (35.5-45.6) 10/25/16 06:01 MCV 91 fl (84-94) 10/25/16 06:01 MCH 31 pg (28-32) 10/25/16 06:01 MCHC 33 % (32-34) 10/25/16 06:01 RDW 17.4 % (13.2-15.2) H 10/25/16 06:01 Plt Count 98 K/mm3 (140-440) L 10/25/16 06:01 Lymph % (Auto) 36.4 % (13.4-35.0) H 10/25/16 06:01 [place] % (Auto) 13.1 % (0.0-7.3) H 10/25/16 06:01 Eos % (Auto) 6.3 % (0.0-4.3) H 10/25/16 06:01 Baso % (Auto) 0.4 % (0.0-1.8) 10/25/16 06:01 Lymph # 1.7 K/mm3 (1.2-5.4) 10/25/16 06:01 [place] # 0.6 K/mm3 (0.0-0.8) 10/25/16 06:01 Eos # 0.3 K/mm3 (0.0-0.4) 10/25/16 06:01 Baso # 0.0 K/mm3 (0.0-0.1) 10/25/16 06:01 Seg Neutrophils % 43.8 % (40.0-70.0) 10/25/16 06:01 Seg Neutrophils # 2.1 K/mm3 (1.8-7.7) 10/25/16 06:01 ESR 16 mm/Hr (0-20) 10/24/16 03:00 VBG pH 7.345 (7.320-7.420) 10/24/16 03:00 Sodium 140 mmol/L (137-145) 10/28/16 08:01 Potassium 3.7 mmol/L (3.6-5.0) 10/28/16 08:01 Chloride 106.4 mmol/L (98-107) 10/28/16 08:01 Carbon Dioxide 25 mmol/L (22-30) 10/28/16 08:01 Anion Gap 12 mmol/L 10/28/16 08:01 BUN 11 mg/dL (9-20) 10/28/16 08:01 Creatinine 0.8 mg/dL (0.8-1.5) 10/28/16 08:01 Estimated GFR > 60 ml/min 10/28/16 08:01 BUN/Creatinine Ratio 13.75 % 10/28/16 08:01 Glucose 88 mg/dL (75-100) 10/28/16 08:01 Lactic Acid 1.50 mmol/L (0.7-2.0) 10/25/16 06:01 Calcium 8.1 mg/dL (8.4-10.2) L 10/28/16 08:01 Magnesium 1.50 mg/dL (1.7-2.3) L 10/28/16 08:01 Total Bilirubin 1.00 mg/dL (0.1-1.2) 10/25/16 06:01 Direct Bilirubin 0.3 mg/dL (0-0.2) H 10/25/16 06:01 Indirect Bilirubin 0.7 mg/dL 10/25/16 06:01 AST 29 units/L (5-40) 10/25/16 06:01 ALT 11 units/L (7-56) 10/25/16 06:01 Alkaline Phosphatase 73 units/L (35-129) 10/25/16 06:01 Total Creatine Kinase 239 units/L (55-170) H 10/24/16 03:15 C-Reactive Protein 0.60 mg/dL (0.00-1.30) 10/25/16 06:01 Total Protein 5.8 g/dL (6.3-8.2) L 10/25/16 06:01 Albumin 2.8 g/dL (3.9-5) L 10/25/16 06:01 Albumin/Globulin Ratio 0.9 % 10/25/16 06:01 Urine Color Yellow (Yellow) 10/24/16 Unknown Urine Turbidity Clear (Clear) 10/24/16 Unknown Urine pH 5.0 (5.0-7.0) 10/24/16 Unknown Ur Specific [place] 1.016 (1.003-1.030) 10/24/16 Unknown Urine Protein <15 mg/dl mg/dL (Negative) 10/24/16 Unknown Urine Glucose (UA) Neg mg/dL (Negative) 10/24/16 Unknown Urine Ketones Neg mg/dL (Negative) 10/24/16 Unknown Urine Blood Neg (Negative) 10/24/16 Unknown Urine Nitrite Neg (Negative) 10/24/16 Unknown Urine Bilirubin Neg (Negative) 10/24/16 Unknown Urine Urobilinogen < 2.0 mg/dL (<2.0) 10/24/16 Unknown Ur Leukocyte Esterase Neg (Negative) 10/24/16 Unknown Urine WBC (Auto) 6.0 /HPF (0.0-6.0) 10/24/16 Unknown Urine RBC (Auto) 4.0 /HPF (0.0-6.0) 10/24/16 Unknown U Epithel Cells (Auto) 1.0 /HPF (0-13.0) 10/24/16 Unknown Hyaline Casts 1 /LPF 10/24/16 Unknown Urine Mucus Few /HPF 10/24/16 Unknown Urine Opiates Screen Presumptive negative 10/24/16 Unknown Urine Methadone Screen Presumptive negative 10/24/16 Unknown Ur Barbiturates Screen Presumptive negative 10/24/16 Unknown Ur Phencyclidine Scrn Presumptive negative 10/24/16 Unknown Ur Amphetamines Screen Presumptive positive 10/24/16 Unknown U Benzodiazepines Scrn Presumptive negative 10/24/16 Unknown Urine Cocaine Screen Presumptive positive 10/24/16 Unknown U Marijuana (THC) Screen Presumptive negative 10/24/16 Unknown Drugs of Abuse Note Disclamer 10/24/16 Unknown
--- NOTE | 2016-10-28 11:21 | Progress Note ---
Assessment and Plan - Patient Problems (1) Ankle osteomyelitis, left Current Visit: No Status: Chronic Qualifiers: Osteomyelitis type: other chronic Qualified Code(s): M86.672 - Other chronic osteomyelitis, left ankle and foot Plan to address problem: 1. I spent ~20 minutes reviewing the records from [facility]. A pathogen was not isolated and identified per those records. Instead patient was being treated empirically with Vancomycin/ Zosyn with plans to continue the same. Several strains of Staph aureus were present from the broth of left ankle wound cultures. 2. Patient is currently on Nafcillin, which is based on culture results from Mr. Henriquez's hospitalization here in June 2016. I DO NOT KNOW IF THIS IS CHECKER DUMP GROUNDS OF HIS CURRENT INFECTIOUS ISSUE. I do not recommend prolonged antibiotic treatment without a clear pathogen to target. 3. I will discontinue Nafcillin. I am recommending bone biopsy after patient has been off antibiotics for > 1 week. Perhaps this can be done on an outpatient basis. Patient can then have an antibiotic regimen tailored to the pathogen that is isolated. 4. This patient is NOT an ideal candidate for any home-based IV infusion. 5. I will sign off. Please call again if there are additional questions or concerns. Subjective Date of service: 10/28/16 Principal diagnosis: Left Ankle Osteomyelitis Interval history: Patient says his left ankle swelling and pain are improved. Remains afebrile. Stable. Objective - Constitutional Vitals: Vital Signs Temp Pulse Resp BP Pulse Ox 98.2 F 66 16 124/60 97 10/28/16 08:00 10/28/16 08:00 10/28/16 08:00 10/28/16 08:00 10/28/16 08:00 Temperature -Last 24 Hours Temperature 98.2 F Temperature 99.2 F Temperature 98.7 F General appearance: Present: no acute distress, other (non-toxic apperance) - Respiratory Respiratory effort: normal Respiratory: bilateral: CTA - Cardiovascular Rhythm: regular Heart Sounds: Present: S1 & S2 Extremity abnormal: edema (little change in appearance of left ankle with trace edema, no significant erythema, well-healed lateral ankle incision) - Gastrointestinal General gastrointestinal: Present: soft, non-distended - Integumentary Integumentary: no jaundice, no rash - Neurologic Neurologic: moves all extremities - Psychiatric Psychiatric: appropriate mood/affect - Labs CBC & Chem 7: 10/25/16 06:01 10/28/16 08:01 Labs: Abnormal lab results 10/28/16 Range/Units 08:01 Calcium 8.1 L (8.4-10.2) mg/dL Magnesium 1.50 L (1.7-2.3) mg/dL Microbiology 10/24/16 03:00 Peripheral/Venous Blood Culture - Preliminary NO GROWTH AFTER 4 DAYS 10/24/16 03:15 Peripheral/Venous Blood Culture - Preliminary NO GROWTH AFTER 4 DAYS
[2016-10-28] MEDS: LOVENOX SUB-Q SCH (21:10)
[2016-10-29] MEDS: NACL 0.9% 1000 ML 1,000 ML IV SCH ×2 (01:00→14:28)
[2016-10-29] MEDS: MORPHINE IV PRN ×4 (03:13→21:46)
[2016-10-29 06:32] LABS: Basophils % (Auto) 0.4 % (0.0-1.8); Eosinophils % (Auto) 5.8 % (0.0-4.3); Hematocrit 35.3 % (35.5-45.6); Hemoglobin 11.7 gm/dl (11.8-15.2); Mean Corpuscular HGB Conc 33 % (32-34); Mean Corpuscular Hemoglobin 31 pg (28-32); Mean Corpuscular Volume 93 fl (84-94); Platelet Count 113 K/mm3 (140-440); White Blood Count 5.4 K/mm3 (4.5-11.0)
[2016-10-29 06:55] LABS: Anion Gap 15 mmol/L; BUN/Creatinine Ratio 14.28; Blood Urea Nitrogen 10 mg/dL (9-20); Calcium 8.4 mg/dL (8.4-10.2); Carbon Dioxide 24 mmol/L (22-30); Chloride 106.3 mmol/L (98-107); Glucose 111 mg/dL (75-100); Potassium 3.7 mmol/L (3.6-5.0); Sodium 142 mmol/L (137-145)
[2016-10-29] MEDS: CEPHULAC PO SCH ×2 (09:07→21:50)
[2016-10-29] MEDS: PROTONIX PO SCH ×2 (09:08→21:51)
[2016-10-29] MEDS: THERAGRAN Tab PO SCH (09:09)
[2016-10-29] MEDS: MAG-OX PO SCH ×2 (09:09→21:51)
[2016-10-29] MEDS: XIFAXAN PO SCH ×2 (09:09→21:51)
[2016-10-29] MEDS: celeXA PO SCH (09:09)
[2016-10-29] MEDS: LIBRIUM PO SCH (09:09)
[2016-10-29] MEDS: SYNTHROID PO SCH (09:09)
[2016-10-29] MEDS: ALDACTONE PO SCH (09:09)
[2016-10-29] MEDS: VITAMIN B-1 PO SCH (09:09)
--- NOTE | 2016-10-29 16:09 | Progress Note ---
Assessment and Plan Assessment and plan: --Osteomyelitis left ankle. acute on chronic, poa IV nafcillin recommended by ID, cultures negative to date, supportive care Orthopedic and ID following --Hypomagnesemia; 1.5, magnesium oxide 400 mg twice a day closely monitor S --Acute kidney injury/vasomotor nephropathy Resolved, Avoid nephrotoxic medications --History of hepatitis C/cirrhosis, stable --Hypothyroidism; stable on Synthroid --Alcohol abuse; monitor for any withdrawal symptoms, CIWA protocol as needed --History of cocaine use; counseling done patient strongly advised to quit cocaine --Moderate protein calorie malnutrition; nutrition supplements and supportive care --Ongoing tobacco use; smoking cessation counseling ,advised to quit, nicotine patch as needed --DVT prophylaxis with Lovenox Plan of care discussed with patient per ID: (1) Ankle osteomyelitis, left Current Visit: No Status: Chronic Qualifiers: Osteomyelitis type: other chronic Qualified Code(s): M86.672 - Other chronic osteomyelitis, left ankle and foot Plan to address problem: 1. I spent ~20 minutes reviewing the records from [facility]. A pathogen was not isolated and identified per those records. Instead patient was being treated empirically with Vancomycin/ Zosyn with plans to continue the same. Several strains of Staph aureus were present from the broth of left ankle wound cultures. 2. Patient is currently on Nafcillin, which is based on culture results from Mr. Henriquez's hospitalization here in June 2016. 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 I do not recommend prolonged antibiotic treatment without a clear pathogen to target. 3. I will discontinue Nafcillin. I am recommending bone biopsy after patient has been off antibiotics for > 1 week. Perhaps this can be done on an outpatient basis. Patient can then have an antibiotic regimen tailored to the pathogen that is isolated. 4. This patient is NOT an ideal candidate for any home-based IV infusion. 5. I will sign off. Please call again if there are additional questions or concerns. Disposition; follow ID for long-term antibiotic, LTAC versus swing bed, follow orthopedic recommendations Hypomagnesemia, once stabilized to be discharged if afebrile overnight, will d/c am History Interval history: Patient seen and examined. Follow up on current diagnosis/left ankle infection. Overnight uneventful. No cp, sob, n/v or severe headaches. Imaging, old records , testing, labs, nursing notes reviewed. Hospitalist Physical - Physical exam Narrative exam: GEN: WDWN, NAD, AWAKE, ALERT, ORIENTATED x 3 HEENT: NCAT, PERRL, EOMI, OP CLEAR NECK: SUPPLE, NO THYROMEGALY, NO JVD, NO LAD CVS: RRR, NORMAL S1S2 LUNGS/CHEST: CTA B, NORMAL CHEST EXPANSION B, GOOD AIR ENTRY B ABD: SOFT, NTND, GBS, NO REBOUND OR GUARDING EXT/SKIN: NO SIGNIFICANT EDEMA OR RASH MSK: FROM X 4 EXTREMITIES NEURO: CN 2-12 GROSSLY INTACT, NO FOCAL DEFICITS PSY: CALM - Constitutional Vitals: Temp Pulse Resp BP Pulse Ox 98 F 62 16 110/58 98 10/29/16 08:13 10/29/16 08:13 10/29/16 08:13 10/29/16 08:13 10/29/16 08:13 General appearance: Present: no acute distress, well-nourished Results - Labs CBC & Chem 7: 10/29/16 05:59 10/29/16 05:59 Labs: Laboratory Last Values WBC 5.4 K/mm3 (4.5-11.0) 10/29/16 05:59 RBC 3.80 M/mm3 (3.65-5.03) 10/29/16 05:59 Hgb 11.7 gm/dl (11.8-15.2) L 10/29/16 05:59 Hct 35.3 % (35.5-45.6) L 10/29/16 05:59 MCV 93 fl (84-94) 10/29/16 05:59 MCH 31 pg (28-32) 10/29/16 05:59 MCHC 33 % (32-34) 10/29/16 05:59 RDW 18.0 % (13.2-15.2) H 10/29/16 05:59 Plt Count 113 K/mm3 (140-440) L 10/29/16 05:59 Lymph % (Auto) 36.0 % (13.4-35.0) H 10/29/16 05:59 [place] % (Auto) 11.5 % (0.0-7.3) H 10/29/16 05:59 Eos % (Auto) 5.8 % (0.0-4.3) H 10/29/16 05:59 Baso % (Auto) 0.4 % (0.0-1.8) 10/29/16 05:59 Lymph # 1.9 K/mm3 (1.2-5.4) 10/29/16 05:59 [place]itt # 0.6 K/mm3 (0.0-0.8) 10/29/16 05:59 Eos # 0.3 K/mm3 (0.0-0.4) 10/29/16 05:59 Baso # 0.0 K/mm3 (0.0-0.1) 10/29/16 05:59 Seg Neutrophils % 46.3 % (40.0-70.0) 10/29/16 05:59 Seg Neutrophils # 2.5 K/mm3 (1.8-7.7) 10/29/16 05:59 ESR 16 mm/Hr (0-20) 10/24/16 03:00 VBG pH 7.345 (7.320-7.420) 10/24/16 03:00 Sodium 142 mmol/L (137-145) 10/29/16 05:59 Potassium 3.7 mmol/L (3.6-5.0) 10/29/16 05:59 Chloride 106.3 mmol/L (98-107) 10/29/16 05:59 Carbon Dioxide 24 mmol/L (22-30) 10/29/16 05:59 Anion Gap 15 mmol/L 10/29/16 05:59 BUN 10 mg/dL (9-20) 10/29/16 05:59 Creatinine 0.7 mg/dL (0.8-1.5) L 10/29/16 05:59 Estimated GFR > 60 ml/min 10/29/16 05:59 BUN/Creatinine Ratio 14.28 % 10/29/16 05:59 Glucose 111 mg/dL (75-100) H 10/29/16 05:59 Lactic Acid 1.50 mmol/L (0.7-2.0) 10/25/16 06:01 Calcium 8.4 mg/dL (8.4-10.2) 10/29/16 05:59 Magnesium 1.60 mg/dL (1.7-2.3) L 10/29/16 05:59 Total Bilirubin 1.00 mg/dL (0.1-1.2) 10/25/16 06:01 Direct Bilirubin 0.3 mg/dL (0-0.2) H 10/25/16 06:01 Indirect Bilirubin 0.7 mg/dL 10/25/16 06:01 AST 29 units/L (5-40) 10/25/16 06:01 ALT 11 units/L (7-56) 10/25/16 06:01 Alkaline Phosphatase 73 units/L (35-129) 10/25/16 06:01 Total Creatine Kinase 239 units/L (55-170) H 10/24/16 03:15 C-Reactive Protein 0.60 mg/dL (0.00-1.30) 10/25/16 06:01 Total Protein 5.8 g/dL (6.3-8.2) L 10/25/16 06:01 Albumin 2.8 g/dL (3.9-5) L 10/25/16 06:01 Albumin/Globulin Ratio 0.9 % 10/25/16 06:01 Urine Color Yellow (Yellow) 10/24/16 Unknown Urine Turbidity Clear (Clear) 10/24/16 Unknown Urine pH 5.0 (5.0-7.0) 10/24/16 Unknown Ur Specific [place] 1.016 (1.003-1.030) 10/24/16 Unknown Urine Protein <15 mg/dl mg/dL (Negative) 10/24/16 Unknown Urine Glucose (UA) Neg mg/dL (Negative) 10/24/16 Unknown Urine Ketones Neg mg/dL (Negative) 10/24/16 Unknown Urine Blood Neg (Negative) 10/24/16 Unknown Urine Nitrite Neg (Negative) 10/24/16 Unknown Urine Bilirubin Neg (Negative) 10/24/16 Unknown Urine Urobilinogen < 2.0 mg/dL (<2.0) 10/24/16 Unknown Ur Leukocyte Esterase Neg (Negative) 10/24/16 Unknown Urine WBC (Auto) 6.0 /HPF (0.0-6.0) 10/24/16 Unknown Urine RBC (Auto) 4.0 /HPF (0.0-6.0) 10/24/16 Unknown U Epithel Cells (Auto) 1.0 /HPF (0-13.0) 10/24/16 Unknown Hyaline Casts 1 /LPF 10/24/16 Unknown Urine Mucus Few /HPF 10/24/16 Unknown Urine Opiates Screen Presumptive negative 10/24/16 Unknown Urine Methadone Screen Presumptive negative 10/24/16 Unknown Ur Barbiturates Screen Presumptive negative 10/24/16 Unknown Ur Phencyclidine Scrn Presumptive negative 10/24/16 Unknown Ur Amphetamines Screen Presumptive positive 10/24/16 Unknown U Benzodiazepines Scrn Presumptive negative 10/24/16 Unknown Urine Cocaine Screen Presumptive positive 10/24/16 Unknown U Marijuana (THC) Screen Presumptive negative 10/24/16 Unknown Drugs of Abuse Note Disclamer 10/24/16 Unknown
[2016-10-29] MEDS ORDERED: MAGNESIUM SULFATE 2GM/50ML 2 GM/50 ML BAG IV ONE (17:01)
[2016-10-29] MEDS: LOVENOX SUB-Q SCH (21:50)
[2016-10-30 05:18] LABS: Hematocrit 35.6 % (35.5-45.6); Hemoglobin 11.7 gm/dl (11.8-15.2); Mean Corpuscular HGB Conc 33 % (32-34); Mean Corpuscular Hemoglobin 31 pg (28-32); Mean Corpuscular Volume 93 fl (84-94); Platelet Count 111 K/mm3 (140-440); Red Blood Count 3.82 M/mm3 (3.65-5.03); White Blood Count 5.3 K/mm3 (4.5-11.0)
[2016-10-30 05:28] LABS: Anion Gap 17 mmol/L; Blood Urea Nitrogen 9 mg/dL (9-20); Calcium 8.3 mg/dL (8.4-10.2); Carbon Dioxide 22 mmol/L (22-30); Chloride 99.9 mmol/L (98-107); Glucose 78 mg/dL (75-100); Potassium 3.4 mmol/L (3.6-5.0); Sodium 135 mmol/L (137-145)
[2016-10-30] MEDS: NACL 0.9% 1000 ML 1,000 ML IV SCH (07:46)
[2016-10-30] MEDS: MORPHINE IV PRN (08:18)
[2016-10-30] MEDS: CEPHULAC PO SCH (11:08)
[2016-10-30] MEDS: LIBRIUM PO SCH (11:09)
[2016-10-30] MEDS: VITAMIN B-1 PO SCH (11:09)
[2016-10-30] MEDS: SYNTHROID PO SCH (11:09)
[2016-10-30] MEDS: THERAGRAN Tab PO SCH (11:10)
[2016-10-30] MEDS: XIFAXAN PO SCH (11:10)
[2016-10-30] MEDS: MAG-OX PO SCH (11:10)
[2016-10-30] MEDS: PROTONIX PO SCH (11:10)
[2016-10-30] MEDS: celeXA PO SCH (11:11)
[2016-10-30] MEDS: ALDACTONE PO SCH (11:13)
--- NOTE | 2016-10-30 15:37 | Discharge Summary ---
Providers - Providers Date of Admission: 10/24/16 04:25 Date of discharge: 10/30/16 Attending physician: CAT NI 10/24/16 10:14 Consult to Physician [CONS] Routine Consulting Provider: PETAR YIP Reason For Exam: osteomyelitis Place consult to:: chilo Notified:: Phone number called:: yes 10/24/16 10:16 Consult to Wound/ET Nurse [CONS] Routine Reason For Exam: wound eval 10/25/16 08:00 Consult to Physician [CONS] Routine Consulting Provider: RIANA MCKINNEY Reason For Exam: osteomyelitis ankle Place consult to:: dr. mckinney Notified:: voice mail Phone number called:: [phone] Was contact made?: No Time called:: 08:54 10/25/16 16:06 Consult to Case Management [CONS] Routine Services Needed at Discharge: Other Notified:: wai Comment:: Need micro records from [facility] [id number]; place on chart 10/25/16 17:50 psychiatry consult [Consult to Mental Health] [CONS] Routine Reason For Exam: history of bipolar disorder Place consult to:: PSYCH Notified:: FERNY Time called:: 17:55 Primary care physician: [employer] DES[employer] CHECKER Hospitalization Condition: Stable Hospital course: --Osteomyelitis left ankle. acute on chronic, poa Orthopedic and ID following --Hypomagnesemia; 1.5, magnesium oxide 400 mg twice a day closely monitor S --Acute kidney injury/vasomotor nephropathy Resolved, Avoid nephrotoxic medications --History of hepatitis C/cirrhosis, stable --Hypothyroidism; stable on Synthroid --Alcohol abuse; monitor for any withdrawal symptoms, CIWA protocol as needed --History of cocaine use; counseling done patient strongly advised to quit cocaine --Moderate protein calorie malnutrition; nutrition supplements and supportive care --Ongoing tobacco use; smoking cessation counseling ,advised to quit, nicotine patch as needed --DVT prophylaxis with Lovenox Plan of care discussed with patient per ID: (1) Ankle osteomyelitis, left Current Visit: No Status: Chronic Qualifiers: Osteomyelitis type: other chronic Qualified Code(s): M86.672 - Other chronic osteomyelitis, left ankle and foot Plan to address problem: 1. I spent ~20 minutes reviewing the records from [facility]. A pathogen was not isolated and identified per those records. Instead patient was being treated empirically with Vancomycin/ Zosyn with plans to continue the same. Several strains of Staph aureus were present from the broth of left ankle wound cultures. 2. Patient is currently on Nafcillin, which is based on culture results from Mr. Henriquez's hospitalization here in June 2016. 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 I do not recommend prolonged antibiotic treatment without a clear pathogen to target. 3. I will discontinue Nafcillin. I am recommending bone biopsy after patient has been off antibiotics for > 1 week. Perhaps this can be done on an outpatient basis. Patient can then have an antibiotic regimen tailored to the pathogen that is isolated. 4. This patient is NOT an ideal candidate for any home-based IV infusion. 5. I will sign off. Please call again if there are additional questions or concerns. Hypomagnesemia, stabilized to be discharged Patient is afebrile. He doesn't want to be discharge because he is homeless. Disposition: DC-01 TO HOME OR SELFCARE Time spent for discharge: 35 minutes Core Measure Documentation - Palliative Care Palliative Care/ Comfort Measures: Not Applicable - Core Measures Any of the following diagnoses?: none - VTE Discharge Requirements Deep Vein Thrombosis/Pulmonary Embolism Present on Admission: No Has pt received <5 days of overlap therapy or INR<2.0: No Anticoagulant overlap therapy prescribed at discharge: No Contraindication No Overlap Therapy order at DC: Not Indicated Exam - Physical Exam Narrative exam: GEN: WDWN, NAD, AWAKE, ALERT, ORIENTATED x 3 HEENT: NCAT, PERRL, EOMI, OP CLEAR NECK: SUPPLE, NO THYROMEGALY, NO JVD, NO LAD CVS: RRR, NORMAL S1S2 LUNGS/CHEST: CTA B, NORMAL CHEST EXPANSION B, GOOD AIR ENTRY B ABD: SOFT, NTND, GBS, NO REBOUND OR GUARDING EXT/SKIN: NO SIGNIFICANT EDEMA OR RASH MSK: FROM X 4 EXTREMITIES NEURO: CN 2-12 GROSSLY INTACT, NO FOCAL DEFICITS PSY: CALM - Constitutional Vitals: Temp Pulse Resp BP Pulse Ox 98.6 F 67 20 109/62 97 10/30/16 08:00 10/30/16 08:00 10/30/16 08:00 10/30/16 11:13 08/16/17 08:00 Plan Activity: no driving until cleared by PCP, other (no strenous activity until cleared by PCP) Diet: low salt Follow up with: PRIMARY CARE, [Primary Care Provider] - 3-5 Days Prescriptions: Oxycodone HCl/Acetaminophen [Percocet 10/325 mg] 1 tab PO Q6H PRN #30 tablet MDD 1 tab PRN Reason: Pain
[2016-10-30 16:35] VITALS: BP 104/55
== END 2016-10-30 18:10 | disposition home or self-care (01) | DRG 862 ==
LOC: EDBD 21:27 → ED 21:27 → 3A 10-24 04:25
PROVIDERS: ADMIT Internal Medicine; ATTEND Internal Medicine
DX: T81.4XXA Infection following a procedure, initial encounter (principal); N17.0 Acute kidney failure with tubular necrosis; M86.172 Other acute osteomyelitis, left ankle and foot; B19.20 Unspecified viral hepatitis C without hepatic coma; E03.9 Hypothyroidism, unspecified; F14.10 Cocaine abuse, uncomplicated; E83.42 Hypomagnesemia; E44.0 Moderate protein-calorie malnutrition; F41.1 Generalized anxiety disorder; F32.9 Major depressive disorder, single episode, unspecified; F10.10 Alcohol abuse, uncomplicated; F17.200 Nicotine dependence, unspecified, uncomplicated; M86.672 Other chronic osteomyelitis, left ankle and foot; G89.29 Other chronic pain; M54.9 Dorsalgia, unspecified; Y83.8 Other surgical procedures as the cause of abnormal reaction of the patient, or of later complication, without mention of misadventure at the time of the procedure; Z68.27 Body mass index [BMI] 27.0-27.9, adult; Z71.51 Drug abuse counseling and surveillance of drug abuser; Z71.6 Tobacco abuse counseling; Z82.49 Family history of ischemic heart disease and other diseases of the circulatory system; Z79.899 Other long term (current) drug therapy; Y92.89 Other specified places as the place of occurrence of the external cause; B95.62 Methicillin resistant Staphylococcus aureus infection as the cause of diseases classified elsewhere
CPT/HCPCS: 36415; 80048; 80074; 80307; 81001; 82140; 82550; 82805; 83735; 85025; 85027; 85652; 86140; 87040; 93005; 93010; 96365; 96375; J1650; J2270; J2405; J2543; J3370; J3475; J7030; J7040; J7050